=== PATIENT | female | born 1970 | race African-American/Black ===

== ENCOUNTER 2020-02-22 17:03 | Emergency (ER) | payer SELFPAY ==
[2020-02-22 17:08] VITALS: BP 129/78; PULSE 74; RESP 16; TEMP 36.7; O2SAT 98
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
== END 2020-02-22 17:29 | disposition home or self-care (01) ==
PROVIDERS: Emergency Provider Nurse Practitioner Family
DX: S61.411D Laceration without foreign body of right hand, subsequent encounter (principal); W26.0XXD Contact with knife, subsequent encounter
CPT/HCPCS: 99201; G0463

== ENCOUNTER 2020-11-27 08:44 | Outpatient (CLI) | payer BC, SELFPAY ==
--- NOTE | ~2020-11-27 | MM_ITS ---
EXAMINATION: MM screening [facility] BI w susan HISTORY: Screening TECHNIQUE: Craniocaudal and mediolateral oblique 3-D tomosynthesis images were obtained and synthetic 2-D images were generated. CAD analysis was submitted and interpreted. COMPARISON: Comparison to multiple prior studies sequentially, with oldest reviewed study dated 04/30. BREAST PARENCHYMAL COMPOSITION: There are scattered areas of fibroglandular density. FINDINGS: There is no evidence of suspicious mass, calcification, or architectural distortion to sugg est malignancy in either breast. There has been no suspicious interval change. IMPRESSION: 1. No mammographic evidence of malignancy. 2. Recommend routine screening mammography in one year. BI-RADS Category 1: Negative Reviewed, dictated and finalized at location A.
== END 2020-11-27 08:45 | disposition home or self-care (01) ==
LOC: ANHIMG 08:46
PROVIDERS: PCP Emergency Medicine; Visit Provider Nurse Practitioner
DX: Z12.31 Encounter for screening mammogram for malignant neoplasm of breast (principal)
CPT/HCPCS: 77063; 77067

== ENCOUNTER 2020-11-27 09:12 | Outpatient (CLI) | payer BC, SELFPAY ==
--- NOTE | ~2020-11-27 | CT_ITS ---
EXAMINATION: CT sinus wo con DATE: 11/27/2020 09:37 INDICATION: Chronic sinusitis TECHNIQUE: Computed tomography (CT) of the paranasal sinuses was performed without intravenous contra st. The dose-length product (DLP) was 295.03 mGy-cm. Iterative reconstruction was used. COMPARISON: None FINDINGS: There is normal development and pneumatization of the paranasal sinuses. There is mild muco yoko thickening in the ethmoidal air cells, the right sphenoid sinus, and the right maxillary sinus. T he remaining paranasal sinuses are clear. The bilateral ostiomeatal complexes are occluded. Visualize d soft tissues are unremarkable. There is fibrous union of the posterior C1 arch. IMPRESSION: 1. Mild sinus disease as detailed above. Reviewed, dictated and finalized at location B.
== END 2020-11-27 09:13 | disposition home or self-care (01) ==
PROVIDERS: PCP Emergency Medicine; Visit Provider Emergency Medicine
DX: J32.9 Chronic sinusitis, unspecified (principal)
CPT/HCPCS: 70486

== ENCOUNTER 2020-12-16 09:07 | Outpatient (CLI) | payer BC, SELFPAY ==
--- NOTE | ~2020-12-16 | DEXA_ITS ---
Bone Density Report Name: Cat Rogers Age: 50 Sex: Female Ethnicity: White Date of : 1970 Indication: postmenopausal; height loss; cancer; Referring Provider: ROJAS, YAMINI Study: Bone densitometry was performed. Exam Date: December 16, 2020 Accession number: [id number] Bone Density: Region BMD T-score Z-score Classification AP Spine (L1-L4) 0.928 -1.1 -0.4 Osteopenia Femoral Neck (Left) 0.675 -1.6 -0.9 Osteopenia Total Hip (Left) 0.853 -0.7 -0.3 Normal Total Hip Bilateral Avg 0.850 -0.8 -0.4 Normal Femoral Neck (Right) 0.687 -1.5 -0.8 Osteopenia Total Hip (Right) 0.847 -0.8 -0.4 Normal World Health Organization criteria for BMD impression classify patients as: Normal (T-score at or above -1.0), Osteopenia (T-score between -1.0 and -2.5), or Osteoporosis (T-score at or below -2.5). 10-year Fracture Risk(1): Major Osteoporotic Fracture 1.8% Hip Fracture 0.1% Reported Risk Factors: [place] (Black), Neck BMD=0.675, BMI=35.0 (1) FRAX(R) Version 3.08. Fracture probability calculated for an untreated patient. Fracture probability may be lower if the patient has received treatment. Clinical Information Provided by Patient: Has used the following medications: Vitamin D Has the following medical conditions: Cancer Patient maximum height was 67.5 Menopause Age: 26 Onset of menses at age 14 Number of children 2 Impression: The patient has low bone mass, based on the Left Femoral Neck T-score. The patient has an estimated ten-year risk of hip fracture of 0.1% and an estimated ten-year risk of major fracture of 1.8%, based on the WHO FRAX algorithm. Discussion: BONE DENSITY IS LOW AT ONE OR MORE SKELETAL SITES. This patient's lowest T-score is low at one or more skeletal sites. It meets the World Health Organization's (WHO) criteria for ?low bone mass? (T-score between -1.0 and -2.5). The patient's 10-year risk of fracture as calculated by FRAX is less than the threshold where pharmacological therapy is recommended by the National Osteoporosis Foundation (NOF). However, all treatment decisions require clinical judgment and consideration of individual patient factors, including patient preferences, comorbidities, previous drug use, risk factors not captured in the FRAX model (e.g., frailty, falls, vitamin D deficiency, increased bone turnover, interval significant decline in bone density) and possible under or overestimation of fracture risk by FRAX. The patient should follow a healthful lifestyle (good nutrition with adequate calcium and vitamin D, and appropriate weight-bearing exercise). Follow-Up: Consider repeating this study in 2 to 3 years to reassess this patient's status, or sooner if there is some new clinical indication. Reported by: CHENG on 12/16/2020 9:31:00 AM.
== END 2020-12-16 09:08 | disposition home or self-care (01) ==
LOC: ANHIMG 09:09
PROVIDERS: PCP Emergency Medicine; Visit Provider Nurse Practitioner
DX: Z78.0 Asymptomatic menopausal state (principal); M85.88 Other specified disorders of bone density and structure, other site; M85.852 Other specified disorders of bone density and structure, left thigh; M85.851 Other specified disorders of bone density and structure, right thigh
CPT/HCPCS: 77080

== ENCOUNTER 2021-03-17 20:29 | Emergency (ER) | payer BC, SELFPAY ==
--- NOTE | ~2021-03-17 | XR_ITS ---
EXAMINATION: XR chest 1V portable INDICATION: Weakness and dehydration, COVID positive TECHNIQUE: Portable AP chest at 2114 hours COMPARISON: None available FINDINGS: There are patchy bilateral airspace opacities. No pleural effusion or pneumothorax is ident ified. The cardiomediastinal silhouette is normal. IMPRESSION: 1. Patchy bilateral airspace opacities, consistent with pneumonia. Reviewed, dictated and finalized at location A.
[2021-03-17 20:36] VITALS: BP 138/70; PULSE 112; RESP 20; TEMP 38.8; O2SAT 97
--- NOTE | 2021-03-17 20:38 | ECG_ITS ---
Measurements Intervals [place] Rate: 106 P: 151 [place]: 161 QRS: 197 QRSD: 85 T: 172 QT: 306 QTc: 407 Interpretive Statements SINUS TACHYCARDIA ARM LEADS REVERSED CANNOT RULE OUT SEPTAL INFARCT, AGE INDETERMINATE BORDERLINE T WAVE ABNORMALITY- INFERIOR LEADS ABNORMAL ECG Electronically Signed On 03-18-2021 6:03:43 CDT by Frankie Mcintosh D.O.
[2021-03-17 20:55] LABS: Basophils Percent Auto 0.4 % (0.2-1.2); Hematocrit 38.9 % (37.0-47.0); Hemoglobin 12.8 g/dL (12.0-15.0); Immature Granulocyte Absolute 0.01 K/mm3 (0.00-0.031); Immature Granulocyte Percent A 0.2 % (0-0.5); Lymphocytes Absolute Auto 1.23 K/mm3 (0.9-3.2); Lymphocytes Percent Auto 22.7 % (18.3-44.2); Mean Corpuscular HGB Conc 32.9 g/dl (32-36); Mean Corpuscular Hemoglobin 27.5 pg (26-34); Mean Corpuscular Volume 83.5 fl (80-100); Mean Platelet Volume 9.3 fl (7.4-10.4); Monocytes Absolute Auto 0.4 K/mm3 (0.1-0.6); Monocytes Percent Auto 7.2 % (2.6-8.5); Neutrophils Absolute Auto 3.8 K/mm3 (1.3-6.7); Neutrophils Percent Auto 69.5 % (45.5-73.1); Platelet Count Result 188 k/mm3 (150-375); Red Blood Count 4.66 M/mm3 (4.2-5.4); White Blood Count 5.4 K/mm3 (4.5-10.0)
[2021-03-17 21:07] LABS: Add Urine Microscopic? YES; Appearance Urine Cloudy (Clear); Bilirubin Urine Negative (Negative); Blood Urine Negative (Negative); Color Urine Yellow (Yellow); Glucose Urine UA Negative (Negative); Ketones Urine Negative (Negative); Leukocyte Esterase Ur Negative LEU/UL (Negative); Mucus Urine Rare /lpf; Nitrate Urine Negative (Negative); Protein Urine 1+ mg/dL (Negative); Squamous Epithelial Cell Urine Occasional /hpf (Few)
[2021-03-17 21:08] LABS: Alanine Aminotransferase 21 U/L (4-35); Albumin Level 4.3 g/dL (3.5-5.1); Alkaline Phosphatase 81 U/L (38-126); Anion Gap 7 mmol/L (8-16); Aspartate Amino Transferase 33 U/L (14-36); Bilirubin,Total 0.5 mg/dL (0.2-1.3); Blood Urea Nitrogen 13 mg/dL (7-17); Calcium 8.7 mg/dL (8.4-10.2); Carbon Dioxide 28 mmol/L (22-30); Chloride 99 mmol/L (98-107); Estimated CRCL calculation 81 ml/min; Estimated Glomerular Filt Rate > 60; Glucose 121 mg/dL (65-110); Potassium 3.8 mmol/L (3.4-5.0); Sodium 134 mmol/L (137-145)
[2021-03-17 22:40] VITALS: BP 118/72; PULSE 100; RESP 16; TEMP 38.4; O2SAT 96
--- NOTE | 2021-03-18 | PC.NURSE ---
Pt. requesting IV removed and states she wants to go home. Pt. advised against this and to seek medical advise for worsening symptoms. pt. ambulated out of ed w/ steady gait, NAD skin pink warm and dry.
== END 2021-03-18 05:14 | disposition left against medical advice (07) ==
PROVIDERS: Emergency Provider Emergency Medicine; PCP Emergency Medicine
DX: R53.1 Weakness (principal)
CPT/HCPCS: 36415; 71045; 80053; 81001; 85025; 93005; 99199

== ENCOUNTER 2023-07-15 11:42 | Emergency (ER) | payer BC, SELFPAY ==
[2023-07-15] VITALS (18 sets, daily range): BP systolic 112–124; BP diastolic 72–77; PULSE 73–92; RESP 8–28; TEMP 36.2; O2SAT 95–100
--- NOTE | ~2023-07-15 | US_ITS ---
EXAMINATION: US right upper quadrant DATE: 07/15/2023 16:56 INDICATION: Abdominal pain TECHNIQUE: Multiple grayscale and Doppler ultrasound images of the abdomen were obtained. COMPARISON: CT abdomen dated 10/04/2004 FINDINGS: Visualized body of the pancreas appears normal. The pancreatic head and tail are obscured. Liver has normal contour, with a smooth surface. There is increased parenchymal echogenicity and coarsened echo texture consistent with diffuse hepatic steatosis. The gallbladder is normal in appearance. There is no cholelithiasis. The common bile duct measures 5 mm, which is normal. No intrahepatic biliary duct dilation suspected. Portal venous flow was seen in the hepatopetal, normal direction and has normal Doppler waveform. Sonographic Ibarra sign was reported as negative by the biofuels engineering manager.Visualized prox imal inferior vena cava is normal. IMPRESSION: 1. Diffuse hepatic steatosis. Reviewed, dictated and finalized at location A. HALMIC PATHOLOGIST
--- NOTE | 2023-07-15 15:27 | ECG_ITS ---
Measurements Intervals [place] Rate: 76 P: 34 [place]: 179 QRS: 0 QRSD: 91 T: 6 QT: 358 QTc: 405 Interpretive Statements SINUS RHYTHM SEPTAL MYOCARDIAL INFARCTION , OF INDETERMINATE AGE [40+ ms Q WAVE IN V1/V2] NONSPECIFIC T-WAVE ABNORMALITY ABNORMAL ECG COMPARED TO ECG 03/17/2021 20:42:02 SINUS RHYTHM NOW PRESENT Electronically Signed On 07-16-2023 15:03:49 LNA by Francis Sue M.D.
[2023-07-15 15:53] LABS: Basophils Absolute Auto 0.1 K/mm3 (0.0-0.1); Basophils Percent Auto 0.3 % (0.2-1.2); Eosinophils Absolute Auto 0.1 K/mm3 (0-0.3); Eosinophils Percent Auto 0.7 % (0-4.4); Hematocrit 45.5 % (37.0-47.0); Hemoglobin 14.1 g/dL (12.0-15.0); Immature Granulocyte Absolute 0.04 K/mm3 (0.00-0.031); Immature Granulocyte Percent A 0.3 % (0-0.5); Lymphocytes Absolute Auto 1.76 K/mm3 (0.9-3.2); Lymphocytes Percent Auto 12.1 % (18.3-44.2); Mean Corpuscular Hemoglobin 26.9 pg (26-34); Mean Corpuscular Volume 86.8 fl (80-100); Mean Platelet Volume 9.9 fl (7.4-10.4); Monocytes Absolute Auto 0.5 K/mm3 (0.1-0.6); Monocytes Percent Auto 3.1 % (2.6-8.5); Neutrophils Absolute Auto 12.2 K/mm3 (1.3-6.7); Neutrophils Percent Auto 83.5 % (45.5-73.1); Platelet Count Result 295 k/mm3 (150-375); Red Blood Count 5.24 M/mm3 (4.2-5.4); Red Cell Distribution Width 14.2 % (11.5-14.5); White Blood Count 14.6 K/mm3 (4.5-10.0)
[2023-07-15 15:54] LABS: Appearance Urine Clear (Clear); Bilirubin Urine Negative (Negative); Blood Urine Negative (Negative); Color Urine Yellow (Yellow); Glucose Urine UA Negative (Negative); Ketones Urine Trace mg/dL (Negative); Leukocyte Esterase Ur Negative LEU/UL (Negative); Nitrate Urine Negative (Negative); Protein Urine Negative (Negative); Specific Grav Ur 1.017 (1.001-1.035); Urobilinogen Urine 0.2 mg/dL (<2.0)
[2023-07-15 15:56] LABS: Add Urine Microscopic? NO
[2023-07-15 16:01] LABS: Alanine Aminotransferase 24 U/L (6-35); Albumin Level 4.4 g/dL (3.5-5.1); Alkaline Phosphatase 117 U/L (38-126); Anion Gap 9 mmol/L (8-16); Aspartate Amino Transferase 38 U/L (14-36); Bilirubin,Total 0.6 mg/dL (0.2-1.3); Blood Urea Nitrogen 10 mg/dL (7-17); Calcium 9.2 mg/dL (8.4-10.2); Carbon Dioxide 26 mmol/L (22-30); Chloride 104 mmol/L (98-107); Estimated CRCL calculation 91 ml/min; Estimated Glomerular Filt Rate > 60; Glucose 103 mg/dL (65-110); Lipase 217 U/L (23-300); Prothrombin Time 13.6 Seconds (11.1-14.7); Sodium 139 mmol/L (137-145)
[2023-07-15 16:02] LABS: Partial Thromboplastin Time 31.6 SECONDS (22.3-36.8)
[2023-07-15 16:13] LABS: Troponin I < 0.012 ng/mL (0.000-0.034)
--- NOTE | 2023-07-15 16:14 | ED.ABDPAIN ---
HPI - Abdominal Pain General Chief Complaint: Abdominal Pain Stated Complaint: abd pain Time Seen by Provider: 07/15/23 15:27 History of Present Illness HPI narrative: Patient is a 53-year-old female here with abdominal pain. She states that the abdominal pain began about 10 days ago. She has been on a smoothie cleanse over the last 10 days. She notes that she does not get abdominal pain with eating fruits but with eating vegetables or knots the pain seems to worsen significantly. It is located on the epigastric and right upper quadrant area as an associated with feeling as though she needs to suddenly take the bowel movement. Today she notes that she had 1 of her smoothies with some vegetables and began feeling sudden onset abdominal pain associated with some diaphoresis, sweating and feeling as though she needs to go to the bathroom. She notes that the pain persisted and this was different than previous episodes which prompted her visit to the emergency department today. She is currently asymptomatic. No prior cardiac history. No chest pain with these symptoms. She does note that she has had an upper endoscopy in the past, this was grossly normal. She did say that she had a colonoscopy less than about 1 year ago and they did note that she has had some colonic spasms during the procedure. She has struggled with abdominal spams for quite some time however the persistence and associated symptoms were different today. No blood in stool or vomit, no urinary symptoms. No fever or chills. Related Data Allergies Allergy/AdvReac Type Severity Reaction Status Date / Time sulfamethoxazole Allergy Hives Verified 02/22/20 17:09 [From ] trimethoprim [From ] Allergy Hives Verified 02/22/20 17:09 Review of Systems Review of Systems: All systems reviewed & are unremarkable except as noted in HPI and below Exam Narrative: GENERAL: Well-appearing, well-nourished, and in no acute distress. HEAD: Normocephalic, atraumatic. EYES: PERRLA and EOMI. ENT: Nares clear. Mucous membranes moist. NECK: Supple. CHEST: Clear to auscultation. No respiratory distress. HEART: Regular rate and rhythm. Normal peripheral pulses. ABDOMEN: Soft, nontender, nondistended. No rebound or guarding. Negative sood sign. EXTREMITIES: Normal range of motion. No edema. SKIN: Warm, dry, no rash. NEURO: No focal deficits. Alert and oriented x3. PSYCH: Normal mood and affect. Course Course Emergency Course: Chart review performed. Patient here with intermittent abdominal pain times 10 days worse with eating. Episodes of vomiting today. Triage vitals normal. Patient seen evaluated, nontoxic appearing. Currently asymptomatic. She did receive some Zofran by EMS which helped her nausea. Will do abdominal pain workup in addition to right upper quadrant ultrasound given symptoms seem to recur with eating. Only prior abdominal surgery was a . Lab work and imaging reviewed. White blood cell count of 14.6, suspect this could be somewhat reactive from her vomiting today. CMP unremarkable. Normal LFTs. Troponin negative. UA negative for UTI. RUQ ultrasound negative. Patient re-evaluated, continues to feel well with no symptoms. Will discharge with Levsin and Zofran. Advised follow-up with her building services supervisor. Will additionally give her the information for the on-call building services supervisor. The results of pertinent diagnostic studies and exam findings were discussed. The patient?s provisional diagnosis and plan of care were discussed with the patient and present family. The patient and/or present family expressed understanding of the diagnosis and plan. The nurse was instructed to provide written instructions and appropriate follow-up information. The patient understands their need and responsibility to obtain additional follow-up as instructed. The risks of medications administered and prescribed were discussed with the patient and family pr
== END 2023-07-15 18:05 | disposition home or self-care (01) ==
PROVIDERS: Emergency Provider Student in an Organized Health Care Education/Training Program; PCP Emergency Medicine
DX: R10.84 Generalized abdominal pain (principal); R11.2 Nausea with vomiting, unspecified; K76.0 Fatty (change of) liver, not elsewhere classified
CPT/HCPCS: 36415; 76705; 80053; 81003; 83605; 83690; 84484; 85025; 85610; 85730; 93005; 99284

== ENCOUNTER 2023-07-28 06:49 | Outpatient (CLI) | payer BC, SELFPAY ==
--- NOTE | ~2023-07-28 | NM_ITS ---
EXAMINATION: NM hepatobiliary wo pharm DATE: 07/28/2023 09:28 INDICATION: Generalized abdominal pain. COMPARISON: Ultrasound 07/15/2023 TECHNIQUE: 4.9 mCi Tc-99m mebrofenin (Choletec) was administered intravenously. Scintigraphic images of the abdomen were obtained for one hour. Then, the patient drank 8 oz Ensure, and imaging was cont inued for 60 minutes. FINDINGS: There is normal clearance of radiotracer from the blood pool. There is homogeneous tracer u ptake by the liver. Activity progresses to the bowel and gallbladder. Gallbladder ejection fraction (GBEF) was 56%. Note that with this technique, normal GBEF >= 33%. IMPRESSION: 1. Normal hepatobiliary scintigraphy. Reviewed, dictated and finalized at location A. T CLOSER
== END 2023-07-28 06:50 | disposition home or self-care (01) ==
PROVIDERS: PCP Emergency Medicine; Visit Provider Emergency Medicine
DX: R10.84 Generalized abdominal pain (principal)
CPT/HCPCS: 78226; A9537

== ENCOUNTER 2023-08-07 07:47 | Outpatient (CLI) | payer BC, SELFPAY ==
--- NOTE | ~2023-08-07 | DEXA_ITS ---
Bone Density Report Name: YVON FERRERA Age: 53 Sex: Female Ethnicity: White Date of : 1970 Indication: osteopenia; height loss; cancer; Referring Provider: FLAVIO ROY Study: Bone densitometry was performed. Exam Date: August 07, 2023 Accession number: [id number] Bone Density: Region BMD T-score Z-score Classification AP Spine(L1-L4) 0.934 -1.0 -0.2 Normal Femoral Neck (Left) 0.720 -1.2 -0.3 Osteopenia Total Hip (Left) 0.860 -0.7 -0.2 Normal Femoral Neck (Right) 0.725 -1.1 -0.3 Osteopenia Total Hip (Right) 0.867 -0.6 -0.1 Normal Total Hip Mean 0.863 -0.7 -0.2 Normal World Health Organization criteria for BMD impression classify patients as: Normal (T-score at or above -1.0), Osteopenia (T-score between -1.0 and -2.5), or Osteoporosis (T-score at or below -2.5). 10-year Fracture Risk(1): Major Osteoporotic Fracture 4.3% Hip Fracture 0.2% Reported Risk Factors: [place] (), Neck BMD=0.720, BMI=39.1 (1) FRAX(R) Version 3.08. Fracture probability calculated for an untreated patient. Fracture probability may be lower if the patient has received treatment. Previous Exams: Region Exam Age BMD T-score BMD Change BMD Change Date g/cm2 vs Baseline vs Previous AP Spine (L1-L4) 08/07/2023 53 0.934 -1.0 0.006 (0.7%) 0.006 (0.7%) 12/16/2020 50 0.928 -1.1 Total Hip(Left) 08/07/2023 53 0.860 -0.7 0.006 (0.8%) 0.006 (0.8%) 12/16/2020 50 0.853 -0.7 Total Hip(Right) 08/07/2023 53 0.867 -0.6 0.020 (2.4%) 0.020 (2.4%) 12/16/2020 50 0.847 -0.8 *Denotes significance at 95% confidence level, LSC for AP Spine = 0.022 g/cm2, LSC for Total Hip = 0.027 g/cm2 Clinical Information Provided by Patient: Has used the following medications: Vitamin D Has the following medical conditions: Cancer Patient maximum height was 67.5 Menopause Age: 26 No regular weight bearing exercise Onset of menses at age 15 Number of children 2 Impression: The patient has low bone mass, based on the Left Femoral Neck T-score. The patient has an estimated ten-year risk of hip fracture of 0.2% and an estimated ten-year risk of major fracture of 4.3%, based on the WHO FRAX algorithm. No significant bone loss was observed. Discussion: BONE DENSITY IS LOW AT ONE OR MORE SKELETAL SITES. This patient's lowest T-score is low at one or more skeletal sites. It meets the World Health Organization's (WHO) criteria for ?low b
--- NOTE | ~2023-08-07 | MM_ITS ---
EXAMINATION: MM screening [facility] BI w susan HISTORY: Screening mammogram TECHNIQUE: Craniocaudal and mediolateral oblique 3-D tomosynthesis images were obtained and synthetic 2-D images were generated. CAD analysis was submitted and interpreted. COMPARISON: 11/27/2020 bilateral screening mammogram 12/16/2016 diagnostic bilateral mammogram and limited right breast ultrasound examination 05/11/2015 bilateral screening mammogram BREAST PARENCHYMAL COMPOSITION: The breasts are almost entirely fatty. FINDINGS: There is no evidence of suspicious mass, calcification, or architectural distortion to sugg est malignancy in either breast. There has been no suspicious interval change. IMPRESSION: 1. No mammographic evidence of malignancy. 2. Recommend routine screening mammography in one year. BI-RADS Category 1: Negative Reviewed, dictated and finalized at location A. E PLANT
== END 2023-08-07 07:48 | disposition home or self-care (01) ==
LOC: ANHIMG 07:50
PROVIDERS: PCP Emergency Medicine; Visit Provider Emergency Medicine
DX: Z12.31 Encounter for screening mammogram for malignant neoplasm of breast (principal); Z78.0 Asymptomatic menopausal state; M85.852 Other specified disorders of bone density and structure, left thigh; M85.851 Other specified disorders of bone density and structure, right thigh
CPT/HCPCS: 77063; 77067; 77080

== ENCOUNTER 2023-09-03 00:39 | Day surgery (SDC) | payer BC, SELFPAY ==
[2023-08-23 15:04] VITALS: BMI 37.3
--- NOTE | 2023-09-01 14:52 | SUR.PREOP ---
Patient called regarding upcoming procedure. Reviewed preop instructions, appointment times, and procedure prep.
[2023-09-03 08:05] VITALS: BP 138/78; PULSE 54; RESP 14; TEMP 36.2; O2SAT 98
[2023-09-03] MEDS: LACTATED RINGERS 1,000 ML 150 ML IV CONT (08:33)
--- NOTE | 2023-09-03 08:58 | P.PNAN_ITS ---
Anes - Initial Pre Proc Eval Procedure: Operation Date: 09/03/23 09:30 Proposed Procedures p Esophagogastroduodenoscopy - Luis Vela MD Date/Time: 09/03/23 08:58 Surgeon: Luis Vela MD Pre Op Diagnosis: esophagitis, abdominal pain Patient Data Age: 53 Gender: F Height: 1.68 m Weight: 107.1 kg Last Vital Signs Temp 97.2 F L 09/03/23 08:05 Pulse 54 L 09/03/23 08:05 Resp 14 09/03/23 08:05 BP 138/78 09/03/23 08:05 Pulse Ox 98 09/03/23 08:05 O2 Del Method Room Air 09/03/23 08:05 Allergies Allergy/AdvReac Type Severity Reaction Status Date / Time sulfamethoxazole Allergy Hives Verified 09/03/23 08:03 [From ] trimethoprim [From ] Allergy Hives Verified 09/03/23 08:03 Home Medications Medication Instructions Recorded Confirmed Type cholecalciferol (vitamin D3) 125 125 mcg PO DAILY 08/23/23 08/23/23 History mcg (5,000 unit) tablet (Vitamin D3) evening primrose oil 500 mg capsule 500 mg PO TID 08/23/23 08/23/23 History magnesium glycinate 100 mg tablet 100 mg PO DAILY 08/23/23 08/23/23 History omeprazole 20 mg capsule,delayed 20 mg PO DAILY 08/23/23 08/23/23 History release Patient hx anesthesia problems: none Family hx anesthesia problems: none Results Review: All pre-operative results and documents have been reviewed as part of the pre- operative evaluation. [facility] Social History Social History Substance use: former Substance use type: marijuana Other substance usage details: In teens Living arrangements: with family Spiritual care concerns: No Anes - Eval Final PreProcedure Day of Procedure 09/03/23 08:58 Patient weight: obese Heart: regular rate and rhythm Lungs: clear to auscultation Airway: Mallampati scale class II Neurological: alert and oriented Last oral intake: >/= 8 hours ASA classification: III Emergent: no Anesthetic plan: proceed Anesthesia type and monitoring: general GIVS and standard monitoring Results Review: All pre-operative results and documents have been reviewed as part of the pre- operative evaluation. Informed Consent: The patient's anesthetic plan and its attendant risks and benefits were discussed with the patient/family/POA. Questions were solicited and answers provided to the satisfaction of the patient/family/POA.
--- NOTE | 2023-09-03 09:14 | PM.HPGS ---
History of Present Illness History of Present Illness Consent: Risks, benefits, and alternatives have been discussed and questions answered. Patient agrees to proceed with procedure. Chief complaint: esophagitis, abdominal pain Narrative: Cat Rogers is a 53 year old female with epigastric pain for which went to ER, ultrasound showed fatty liver, hida scan normal, she is doing ok now. Had egd but years ago Review of Systems Review of Systems: All systems reviewed & are unremarkable except as noted in HPI and below PMFSH Past Medical History Medical History (Updated 09/03/23 @ 09:16 by Luis Vela MD) Epigastric pain Social History Social History Substance use: former Substance use type: marijuana Other substance usage details: In teens Living arrangements: with family Spiritual care concerns: No Meds Home Medications and Allergies Home Medications Medication Instructions Recorded Confirmed Type cholecalciferol (vitamin D3) 125 125 mcg PO DAILY 08/23/23 08/23/23 History mcg (5,000 unit) tablet (Vitamin D3) evening primrose oil 500 mg capsule 500 mg PO TID 08/23/23 08/23/23 History magnesium glycinate 100 mg tablet 100 mg PO DAILY 08/23/23 08/23/23 History omeprazole 20 mg capsule,delayed 20 mg PO DAILY 08/23/23 08/23/23 History release Allergies Allergy/AdvReac Type Severity Reaction Status Date / Time sulfamethoxazole Allergy Hives Verified 09/03/23 08:03 [From ] trimethoprim [From ] Allergy Hives Verified 09/03/23 08:03 Vital Signs Vital Signs - 24 hr 09/03/23 08:05 Temperature 97.2 F L Pulse Rate 54 L Respiratory Rate 14 Blood Pressure 138/78 Pulse Oximetry 98 Oxygen Delivery Room Air Exam Const: General: comfortable and no acute distress HENMT: Face/Nose/Sinus: Normal nares present Eyes: General: appearance normal, both eyes and all related structures Neck: Neck: no JVD Resp: Auscultation: clear to auscultation bilaterally Cardio: Rate: regular rate Rhythm: regular rhythm GI: Inspection: non-distended GI Palp: Yes Soft to palpation Skin: General skin exam: normal color Neuro: General: gait normal Speech: normal speech Extrem: General: normal to inspection Psych: Mental Status: mental status grossly normal Assessment and Plan Assessment and plan (1) Epigastric pain: Code(s): R10.13 - Epigastric pain Status: Acute Assessment and Plan: egd with bx
[2023-09-03 09:25] VITALS: BP 114/76; PULSE 75; RESP 20; O2SAT 97
[2023-09-03 09:35] VITALS: BP 122/83; PULSE 67; RESP 22; O2SAT 97
[2023-09-03 09:45] VITALS: BP 132/85; PULSE 61; RESP 17; O2SAT 97
== END 2023-09-03 09:47 | disposition home or self-care (01) ==
PROVIDERS: PCP Emergency Medicine; Visit Provider Internal Medicine Gastroenterology
PROC: 0DJ08ZZ Inspection of Upper Intestinal Tract, Via Natural or Artificial Opening Endoscopic (ICD-10-PCS; CPT 43235; principal; 2023-09-03 09:30)
DX: K29.50 Unspecified chronic gastritis without bleeding (principal); K44.9 Diaphragmatic hernia without obstruction or gangrene; E66.9 Obesity, unspecified; Z68.38 Body mass index [BMI] 38.0-38.9, adult
CPT/HCPCS: 43239; 88305; J2704; J7120

== ENCOUNTER 2025-02-19 16:03 | Emergency (ER) | payer BC, SELFPAY ==
[2025-02-19 16:06] VITALS: BP 148/93; PULSE 74; RESP 16; TEMP 36.7; O2SAT 97
--- NOTE | 2025-02-19 16:51 | ED.GENADULT ---
HPI - General Adult General Chief complaint: Dizziness Stated complaint: Dizziness Time Seen by Provider: 02/19/25 16:51 Source: patient, RN notes reviewed and old records reviewed Mode of arrival: ambulatory Limitations: no limitations History of Present Illness HPI narrative: 55-year-old female presents to the [facility] with approximately 2 months of intermittent dizziness. States that she has seen her primary care provider twice 1 at the end of December, once early January. Denies any runny nose, sore throat, fevers. States that she was prescribed some Flonase which does not make the dizziness any better or worse. States that the dizziness only used to happen at work. Has progressed to when she drives. Does have an MRI scheduled for March 12. Patient became concerned when she was trying to drive, looking sideways and became very dizzy. Denies any headaches. Denies chest pain or shortness of breath when this is occurring. Onset (ago): month(s) (Over 2 months) Related Data Home Medications ?Medication ?Instructions ?Recorded ?Confirmed ?Last Taken ?Type cholecalciferol (vitamin D3) 125 125 mcg PO DAILY 08/23/23 02/19/25 Unknown History mcg (5,000 unit) tablet (Vitamin D3) evening primrose oil 500 mg capsule 500 mg PO TID 08/23/23 02/19/25 Unknown History magnesium glycinate 100 mg (as 100 mg PO DAILY 08/23/23 02/19/25 Unknown History glycinate) tablet cyclobenzaprine 10 mg tablet 10 mg PO Q12H PRN muscle spasm 02/19/25 02/19/25 Unknown History fluticasone propionate 50 1 spray intranasal DAILY 02/19/25 02/19/25 Unknown History mcg/actuation nasal spray,suspension Allergies Allergy/AdvReac Type Severity Reaction Status Date / Time sulfamethoxazole (From Allergy Hives Verified 02/19/25 16:09 Septra) trimethoprim (From Septra) Allergy Hives Verified 02/19/25 16:09 valacyclovir (From Valtrex) Allergy Migraine Verified 02/19/25 16:09 Review of Systems Review of Systems: All systems reviewed & are unremarkable except as noted in HPI and below Constitutional: Constitutional: Reports no additional constitutional complaints ENT: Reports system reviewed and no additional complaints, except as documented Cardiovascular: Cardiovascular: Reports no additional cardiovascular complaints, Denies chest pain and Denies dyspnea Respiratory: Respiratory: Reports no additional respiratory complaints, Denies chest congestion, Denies cough and Denies dyspnea Musculoskeletal: Musculoskeletal: Reports no additional musculoskeletal complaints Integumentary/Breasts: Skin/Breast: Reports system reviewed and no additional complaints, except as docu Neurologic: Reports as per HPI and Reports dizziness PMFSH Past Medical History Medical History Epigastric pain Social History Social History Substance use: former Substance use type: marijuana Other substance usage details: In teens Living arrangements: with family Spiritual care concerns: No Comments At the time of my signature, I reviewed and agree with the nursing past medical, surgical, social, and family history. There is no relevant family history pertinent to the patient complaint. Exam Const: General: cooperative, healthy appearing, comfortable, no acute distress, well developed, alert and well nourished Nutritional Appearance: well nourished Orientation/consciousness: patient oriented x3 Limitations: no limitations HENMT: Head: normal to inspection Ears: hearing grossly normal bilaterally, external ears normal, TM's normal bilaterally, EAC's normal, mastoids normal and no periauricular adenopathy Mouth: Yes Normal oral and palatal mucosa present, Yes lip normal, Yes tongue normal and Yes moist mucous membranes Throat: posterior oropharynx normal, uvula midline and no uvular edema Eyes: General: appearance normal, both eyes and all related structures Alignment and Position: alignment normal Neck: Neck: normal visual inspection, full ROM, no lymphadenopathy and no meningeal signs Chest: Chest palpation & inspection: normal inspection of the chest Resp: Effort & Inspection: normal respiratory effort and able to speak in complete sentences Auscultation: clear to auscultation bilaterally, no crackles, no rales, no rhonchi and no wheezes Cardio: Rate: regular rate Skin: General skin exam: normal color and no rashes or lesions noted Neuro: General: patient oriented x3, gait normal, moves all extremities and no meningeal signs Cranial nerves: Yes facial sensation intact/muscles of mastication intact, Yes Equal, round and reactive pupils present, Yes Bilaterally intact EOM present, Yes Nystagmus not present, Yes Normal facial strength present, Yes facial symmetry, Yes Midline tongue present and Yes Ability to bilaterally elevate shoulders present Cognition (Neuro): normal cognition Speech: normal speech Gait exam (Neuro): Normal gait present Extrem: General: normal to inspection, full ROM, capillary refill normal and normal gait Psych: Appearance: grossly normal and well kempt Mental Status: mental status grossly normal Speech and movement: Normal speech and movement present and Clear speech present Affect: normal affect Attitude: cooperative Course Course Level of Care: Express Care Visit Vital Signs Vital signs: Vital Signs Temperature 98.1 F 02/19/25 16:06 Pulse Rate 74 02/19/25 16:06 Respiratory Rate 16 02/19/25 16:06 Blood Pressure 148/93 H 02/19/25 16:06 Pulse Oximetry 97 02/19/25 16:06 Oxygen Delivery Room Air 02/19/25 16:06 Temperature 98.1 F 02/19/25 16:06 Pulse Rate 74 02/19/25 16:06 Respiratory Rate 16 02/19/25 16:06 Blood Pressure 148/93 H 02/19/25 16:06 Pulse Oximetry 97 02/19/25 16:06 Oxygen Delivery Room Air 02/19/25 16:06 Reviewed Medical Decision Making MDM Narrative Medical decision making narrative: Patient sitting in exam room. Patient is tearful and appears mildly anxious. Tired of having dizzy episodes. Has seen her primary care provider twice. Discussed transfer to the ER which she is declining for financial reasons. Discussed attempting meclizine Patient already has an appointment for an MRI Discharge instructions reviewed with patient, as well as provided in writing per nursing staff. The instructions also include specific and strict return/GO TO THE ER as well as f/u information. All questions have been answered, and the patient deny any further questions with discharge and discharge plan. Some parts of this dictation were generated by voice recognition software and may contain typographical and/or grammatical inaccuracies. Differential Diagnosis Differential Diagnosis: TIA, stroke, tumor, abnormal neurologic finding, headache, vertigo Medical Records Medical records reviewed: Yes I reviewed the external patient's medical records. Vital Signs Vital Signs: Vital Signs Temperature 98.1 F 02/19/25 16:06 Pulse Rate 74 02/19/25 16:06 Respiratory Rate 16 02/19/25 16:06 Blood Pressure 148/93 H 02/19/25 16:06 Pulse Oximetry 97 02/19/25 16:06 Oxygen Delivery Room Air 02/19/25 16:06 Temperature 98.1 F 02/19/25 16:06 Pulse Rate 74 02/19/25 16:06 Respiratory Rate 16 02/19/25 16:06 Blood Pressure 148/93 H 02/19/25 16:06 Pulse Oximetry 97 02/19/25 16:06 Oxygen Delivery Room Air 02/19/25 16:06 Reviewed Lab Data Lab results reviewed: Yes I reviewed the patient's lab results. Labs: Reviewed Critical Care Time Critical Care Time Critical Care Time: No Discharge Plan Discharge Clinical Impression: Dizziness Patient Disposition: Home Condition: Stable Instructions: Dizziness (ED) Additional Instructions: Follow-up with your primary care provider tomorrow. Try taking the meclizine to see if that helps with your symptoms For worsening symptoms please go directly to the emergency room. Patient Language: [place] Island[place] Prescriptions: New meclizine 25 mg tablet 25 mg PO BID PRN (Reason: dizziness) Qty: 10 0RF No Action cyclobenzaprine 10 mg tablet 10 mg PO Q12H PRN (Reason: muscle spasm) fluticasone propionate 50 mcg/actuation spray,suspension 1 spray INTRANASAL DAILY evening primrose oil [Evening [place]] 500 mg Capsule 500 mg PO TID Rx Instructions: give with meal/snack magnesium glycinate 100 mg Tablet 100 mg PO DAILY cholecalciferol (vitamin D3) [Vitamin D3] 125 mcg (5,000 unit) Tablet 125 mcg PO DAILY Follow-up/Referrals: Genaro Islas MD [Primary Care Provider, Family Practice] - 2 Days Clinical Impression: Dizziness Stand Alone Forms: Work/School Release IP Time of Disposition: 17:05
== END 2025-02-19 17:10 | disposition home or self-care (01) ==
PROVIDERS: Emergency Provider Nurse Practitioner; PCP Emergency Medicine
DX: R42 Dizziness and giddiness (principal)
CPT/HCPCS: 99213; G0463

== ENCOUNTER 2025-02-20 08:19 | Emergency (ER) | payer BC, SELFPAY ==
--- NOTE | ~2025-02-20 | CT_ITS ---
EXAMINATION: CTA BRAIN/CAROTID DATE: 02/20/2025 10:22 INDICATION: Persistent positional vertigo TECHNIQUE: Computed tomographic angiography (CTA) of the head and neck was performed with 100 mL Omnipaque-350 intravenous contrast. Multiplanar reconstructions and maximum intensity projection 3D-reconstructions of the carotid arteries and of the intracranial arteries were created by the technologist on a separate workstation. Precontrast CT of the head was also obtained. Automated exposure control and iterative reconstruction technique were employed.The dose-length product was 1538.73 mGy-cm. COMPARISON: None. FINDINGS: Head: No acute intracranial hemorrhage, acute infarction or abnormal extra axial fluid collection. There is mild scattered white matter hypoattenuation consistent with chronic small vessel ischemic disease. Ventricles are normal and symmetric. No mass/mass effect. No abnormally enhancing lesions on the post contrast imaging. The orbits, paranasal sinuses and mastoid air cells are normal. Intracranial arteries Vertebral arteries are codominant. There is no hemodynamically significant stenosis in the vertebral, basilar and internal carotid arteries. Both A1 and P1 segments are patent. There are also patent bilateral posterior communicating arteries. There are no aneurysms identified. Cerebral arterial arborization appears symmetric. Carotid arteries: The aortic arch and the great vessels arising from the arch are normal in caliber with no dissection or hemodynamically significant stenosis. There is no evident atherosclerotic plaque with 0% stenosis of the right and left carotid bulbs relative to normal distal artery lumen diameter (NASCET criteria). Mild atelectasis in the visualized upper lungs likely related to expiratory phase of imaging. A couple likely benign hypodense right thyroid nodule aorta measuring 7 mm.. Cervical soft tissues are otherwise unremarkable. Mild cervical and upper thoracic spondylosis. IMPRESSION: 1. No evidence atherosclerotic plaque with 0% stenosis of the right and left carotid bulbs relative to normal distal artery lumen diameter (NASCET criteria). 2. Unremarkable cerebral CT angiogram with no hemodynamic significant stenosis, from stenosis or aneurysm. 3. No acute intracranial process. Reviewed, dictated and finalized at location A. IMPRESSION: 1. No evidence atherosclerotic plaque with 0% stenosis of the right and left ca rotid bulbs relative to normal distal artery lumen diameter (NASCET criteria). 2. Unremarkable cerebral CT angiogram with no hemodynamic significant stenosis, from stenosis or aneurysm. 3. No acute intracranial process.
--- NOTE | ~2025-02-20 | XR_ITS ---
EXAMINATION: XR chest 2V DATE: 02/20/2025 08:54 INDICATION: Dizziness TECHNIQUE: PA and lateral views of the chest were obtained. COMPARISON: Chest radiograph dated 03/17/2021 FINDINGS: The lungs are clear with no focal airspace opacities, pulmonary edema, pleural effusion or pneumothorax. The cardiomediastinal silhouette is normal. Mild upper thoracic levocurvature with mild spondylosis. IMPRESSION: 1. No acute cardiopulmonary disease. Reviewed, dictated and finalized at location A.
--- NOTE | 2025-02-20 08:22 | ECG_ITS ---
Test Date: 2025-02-20 08:28:28 Measurements Intervals [place] Rate: 78 P: 33 NE: 175 QRS: -12 QRSD: 96 T: 17 QT: 372 QTc: 426 Interpretive Statements SINUS RHYTHM CONSIDER PREVIOUS SEPTAL MYOCARDIAL INFARCTION BORDERLINE ECG No previous ECG available for comparison Electronically Signed On 02-20-2025 12:33:13 CDT by Ralph Paez M.D.
[2025-02-20 08:25] VITALS: BP 147/82; PULSE 87; RESP 16; TEMP 37; O2SAT 97
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
--- OUTSIDE RECORDS SUMMARY | 2025-02-20 08:37 | XMS_ITS | Clinical Summary ---
Author Organization [facility] Address [address] [place] [id number] Care Team Providers Care Package Line Relief Operator Name Role Phone Unavailable Primary Care Provider Unavailabl e Social History Tobacco Use Types Packs/Day Years Used Date Smoking Tobacco: Never Assessed Comments Unknown Sex and Gender Information Value Date Recorded Sex Assigned at Not on file Legal Sex Female 2:14 PM CDT Gender Identity Not on file Sexual Orientation Not on file Plan of Treatment Upcoming Encounters Date Type Department Care Team (Late st Contact Info) Description 03/12/2025 8:15 AM CDT Appointment [facility] [address] [place] [address] Genaro Islas MD [address] [place] [address] Health Maintenance Due Date Last Done Comments Cervical Cancer Screening Pa p Smear (Age 30 to 64) Every 3 Years 1972 Colorectal Cancer Screening Colonoscopy (10 Years) 1972 Annual Physical 02/09/1975 Hepatitis C 02/09/1990 DTaP, Tdap and Td Vaccines ( 1 - Tdap) 02/09/1991 Hepatitis B Vaccines (1 of 3 - 19+ 3-dose series) 02/09/1991 Cervical Cancer Screening Pa p with HPV Testing (Age 30 to 64) Every 5 Years 02/09/2002 Cervical Cancer Screening with HPV 02/09/2002 Mammogram Screening 2012 Pneumococcal Vaccine: 50+ Ye ars (1 of 1 - PCV) 02/09/2022 Zoster Vaccines (1 of 2) 02/09/2022 COVID-19 Vaccine ( - 2023-2 5 season) 2025 Meningococcal B Vaccine Aged Out No l onger eligible based on patient's age to complete this topic Meningococcal Vaccine Aged Out No torsten francisca eligible based on patient's age to complete this topic RSV Immunizations Under 20 Months Aged Out No longer eligible based on patient's age to complete this topic Insurance [facility]
--- OUTSIDE RECORDS SUMMARY | 2025-02-20 08:37 | XMS_ITS | Clinical Summary ---
Author Organization [facility] Address [address] [place] [address] Phone Care Team Providers Care Orthotic Aide Name Role Phone Genaro Islas Primary Care Provider [phone] Allergies Active Allergy Reactions Criticality Noted Date Comments Sulfamethoxazole-Trimethoprim Hives 2021 Medications citalopram (CeleXA) 40 MG Tablet Take 40 mg by mouth daily. Active amphetamine-dext roamphetamine (ADDERALL) 20 MG Tablet Take 20 mg by mouth 2 times daily. Active Lansoprazole (PREVACID PO) Take by mouth. Active Family History Medical History Relation Name Comments Other-comment Father pancreatic can cer Relation Name Status Comments Father Mother Social History Tobacco Use Types Packs/Day Years Used Date Smoking Tobacco: Never Cigarettes Smokeless Tobacco: Never Alcohol Use Standard Drinks/Week Comments Yes 0 (1 standard drink = 0.6 oz pur e alcohol) social Comments Unknown Sex and Gender Information Value Date Recorded Sex Assigned at Not on file Legal Sex Female 9:16 AM CDT Gender Identity Not on file Sexual Orientation Not on file Last Filed Vital Signs Vital Sign Reading Time Taken Comments Blood Pressure 140/92 08/08/2021 2:47 PM [employer] Pulse 99 08/08/2021 2:47 PM [employer] Temperature 36.2 C (97.2 F) 08/08/2021 2:47 PM [employer] Respiratory Rate 18 08/08/2021 2:47 PM [employer] Oxygen Saturation 97% 08/08/2021 2:47 PM [employer] Inhaled Oxygen Concentration - - Weight 110.4 kg (243 lb 6.4 oz) 08/08/2021 2:47 PM [employer] Height 169.2 cm (5' 6.6) 08/08/2021 2:47 PM [employer] Body Mass Index 38.58 08/08/2021 2:47 PM [employer] Plan of Treatment Health Maintenance Due Date Last Done Comments Hepatitis C Virus (HCV) Screening 1970 TdaP Immunization 1970 Hepatitis B Immunization (1 of 3 - 19+ 3-dose series) 02/09/1991 Pap Smear 02/09/1993 Cervical Cancer Screening (CCS) 02/09/2002 HPV/Cotest 02/09/2002 Cologuard 02/09/2017 Colonoscopy 02/09/2017 Colorectal Cancer Screening 02/09/2017 Immunochemical Fecal Occult Blood 02/09/2017 Pneumococcal Immunization (5 0+ years) (1 of 1 - PCV) 02/09/2022 Zoster Immunization (1 of 2) 02/09/2022 Influenza Immunization (#1) 2025 SARS-COV-2 Immunization ( - season) 2025 03/24/2021, 03/03/2021 Respiratory Syncytial Virus (RSV) Immunization (Adult) (1 - 1-dose 75+ series) 02/09/2047 Human Papillomavirus (HPV) Immunization Aged Out No longer eligible b ased on patient's age to complete this topic Meningococcal Immunization (ACWY) Aged Out No longer eligible b ased on patient's age to complete this topic Rotavirus Immunization Aged Out No lo nger eligible based on patient's age to complete this topic Insurance [facility] Care Teams Orthotic Aide Relationship Specialty Start Date End Date Genaro Islas [address] [place] [address] PCP - General Family Medicine 12/18/20
[2025-02-20 08:40] LABS: Hematocrit 44.0 % (37.0-47.0); Hemoglobin 13.8 g/dL (12.0-15.0); Immature Granulocyte Percent A 0.3 % (0-0.5); Lymphocytes Absolute Auto 2.30 K/mm3 (0.9-3.2); Mean Corpuscular HGB Conc 31.4 g/dl (32-36); Mean Corpuscular Hemoglobin 27.0 pg (26-34); Mean Corpuscular Volume 85.9 fl (80-100); Nucleated Red Blood Cells Absolute Auto 0.000 K/mm3 (0.0-0.012); Nucleated Red Blood Cells Perc 0.0 % (0.0-0.2); Platelet Count Result 351 k/mm3 (150-375); Red Blood Count 5.12 M/mm3 (4.2-5.4); White Blood Count 6.7 K/mm3 (4.5-10.0)
[2025-02-20 08:51] LABS: Alanine Aminotransferase 22 U/L (6-35); Albumin Level 4.2 g/dL (3.5-5.1); Alkaline Phosphatase 113 U/L (38-126); Anion Gap 8 mmol/L (4-12); Aspartate Amino Transferase 29 U/L (14-36); Bilirubin,Total 0.6 mg/dL (0.2-1.3); Blood Urea Nitrogen 13 mg/dL (7-17); Calcium 9.2 mg/dL (8.4-10.2); Carbon Dioxide 25 mmol/L (22-30); Chloride 104 mmol/L (98-107); Estimated CRCL calculation 78 ml/min; Estimated Glomerular Filt Rate > 60; Glucose 104 mg/dL (65-110); Potassium 3.9 mmol/L (3.4-5.0); Sodium 137 mmol/L (137-145); Total Protein 7.6 g/dL (6.3-8.2)
--- OUTSIDE RECORDS SUMMARY | 2025-02-20 09:27 | XMS_ITS | Clinical Summary ---
Author Organization [facility] Address [address] [place] [address] Care Team Providers Care Employment Interviewer Name Role Phone Genaro Islas MD Primary Care Provider + [phone] Allergies Active Allergy Reactions Criticality Noted Date [...] (04/14/2022): Added automatically from request for surgery [id number] Surgical History Surgery Date Site/Laterality Comments COLONOSCOPY [...] on file Legal Sex Female 4:31 AM SOCIAL MEDIA CONTENT MANAGER Gender Identity Not on file Sexual Orientation Not on file Obstetrics History Last Filed Vital Signs Vital Sign Reading Time Taken Comments Blood Pressure 122/65 05/11/2022 9:55 AM SOCIAL MEDIA CONTENT MANAGER Pulse 67 05/11/2022 9:55 AM SOCIAL MEDIA CONTENT MANAGER Temperature 36 C (96.8 F) 05/11/2022 9:35 AM SOCIAL MEDIA CONTENT MANAGER Respiratory Rate 15 05/11/2022 9:55 AM SOCIAL MEDIA CONTENT MANAGER Oxygen Saturation 98% 05/11/2022 9:55 AM SOCIAL MEDIA CONTENT MANAGER Inhaled Oxygen Concentration - - Weight 104.8 kg (231 lb) 05/11/2022 8:59 AM SOCIAL MEDIA CONTENT MANAGER Height 168.9 cm (5' 6.5) 05/11/2022 8:59 AM SOCIAL MEDIA CONTENT MANAGER Body Mass Index 36.73 05/11/2022 8:59 AM SOCIAL MEDIA CONTENT MANAGER Plan of Treatment Health Maintenance Due Date [...] Associated Diagnosis Comments COLONOSCOPY 05/11/2022 8:50 AM SOCIAL MEDIA CONTENT MANAGER SCREENING MAMMOGRAM BILATERAL W ROBBI Schedule Routine, Read Routine (OP Routine) 03/10/2019 1:57 PM CDT Encounter for screening mammogram for malignant neoplasm of breast from Last 3 Months or Most Recently Relevant to Health Maintenance Results * COLONOSCOPY (05/11/2022 8:50 AM SOCIAL MEDIA CONTENT MANAGER) Anatomical Region Laterality Modality Other Narrative Procedure Note Breanne Bennett MD - 05/11/2022 8:50 AM [facility] Patient Name: Cat Rogers Procedure Date: 05/11/2022 8:50 AM Date of : 1970 Admit Type: Outpatient Age: 52 Gender: Female Attending MD: Breanne Bennett M.D. Room: [facility]COPY [facility] 9 Note Status: Finalized Procedure: [...] The scope was passed under direct vision.The [id number] endoscope was introduced through the anus and advanced to the cecum, identified by appendiceal orifice and ileocecal valve. The colonoscopy was somewhat difficult due torestricted mobility of the colon. The patient tolerated the procedure well. The quality of the bowelpreparation was evaluated using the BBPS (Brinkley BowelPreparation Scale) with scores of: Right Colon [...] On: 05/11/2022 8:50 AM Recognized by the [employer] for promoting quality [...] to a prior imaging study performed at [facility] on 02/02/2018. There are scattered areas of [...] to a prior imaging study performed at [facility] on 02/02/2018. There are scattered areas of [...] Rogers Antione Payer ID:[id number] (NA) Group ID:[id number] Type:Clinicient Address: [address] FEDERAL Member Subscriber Plan / Payer (Ef fective 2021-Present) Name:AlligatorCat maier Relation to Subscriber:Self Name:Cat Rogers Payer ID:[id number] (NAIC) Group ID:[id number] Type:BC ALLIANCE Address: [facility] [id number] [place] [id number] Advance Directives For more information, please contact: [phone] * Full Code (Latest Code Status on File) Date Activated Date Inactivated Comments 05/11/2022 8:45 AM 05/11/2022 2:30 PM Care Teams Employment Interviewer Relationship Specialty Start Date End Date Genaro Islas MD [address] [place] [address] PCP - General 03/20/21
--- OUTSIDE RECORDS SUMMARY | 2025-02-20 09:27 | XMS_ITS | Clinical Summary ---
Author Organization [facility] Address [address] [place] [address] Phone Care Team Providers Care Commercial Hvac Service Technician Name Role Phone Genaro Islas Primary Care Provider [phone] Allergies Active Allergy Reactions Criticality Noted Date [...] Comments Blood Pressure 140/92 08/08/2021 2:47 PM [employer] Pulse 99 08/08/2021 2:47 PM [employer] Temperature 36.2 C (97.2 F) 08/08/2021 2:47 PM [employer] Respiratory Rate 18 08/08/2021 2:47 PM [employer] Oxygen Saturation 97% 08/08/2021 2:47 PM [employer] Inhaled Oxygen Concentration - - Weight 110.4 kg (243 lb 6.4 oz) 08/08/2021 2:47 PM [employer] Height 169.2 cm (5' 6.6) 08/08/2021 2:47 PM [employer] Body Mass Index 38.58 08/08/2021 2:47 PM [employer] Plan of Treatment Health Maintenance Due Date [...] patient's age to complete this topic Insurance [facility] Care Teams Commercial Hvac Service Technician Relationship Specialty Start Date End Date Genaro Islas [address] [place] [address] PCP - General Family Medicine 12/18/20
--- OUTSIDE RECORDS SUMMARY | 2025-02-20 09:27 | XMS_ITS | Clinical Summary ---
Author Organization [facility] Address [address] [place] [address] Care Team Providers Care Jd Edwards Name Role Phone Unavailable Primary Care Provider [...] Info) Description 03/12/2025 8:15 AM CDT Appointment [facility] [address] [place] [address] Genaro Islas MD [address] [place] [address] Health Maintenance Due Date Last [...] patient's age to complete this topic Insurance [facility]
[2025-02-20 10:08] VITALS: BP 130/82; BP 130/85; PULSE 70; PULSE 80
[2025-02-20 10:09] VITALS: BP 135/85; PULSE 89
[2025-02-20] MEDS: MECLIZINE HCL 25 MG TABLET PO (11:09)
[2025-02-20 11:21] LABS: BEDSIDEPREGUCG Negative (Negative)
--- NOTE | 2025-02-20 11:27 | ED.GENADULT ---
HPI - General Adult General Chief complaint: Dizziness Stated complaint: dizziness Time Seen by Provider: 02/20/25 08:38 History of Present Illness HPI narrative: This is a 55-year-old female presenting ED with chief complaint of vertigo. Patient has been having intermittent lightheadedness when she walks over the last 2 months. However over the last week she has developed vertigo while turning her head while driving. The vertigo has occurred once or twice over the last week. It is triggered by moving her head and has occurred while she was driving like when she checks for her blind spot. The symptoms quickly resolve. She does not have any double vision dysarthria dysphagia or loss of coordination. The patient has been seen her primary care physician due to the intermittent lightheadedness but she says vertigo is a completely different sensation. Patient has not had any nausea vomiting diarrhea. No recent illness. She has seen her primary care physician who is treating her with sinus decongestants. Related Data Home Medications ?Medication ?Instructions ?Recorded ?Confirmed ?Last Taken ?Type cholecalciferol (vitamin D3) 125 125 mcg PO DAILY 08/23/23 02/19/25 Unknown History mcg (5,000 unit) tablet (Vitamin D3) evening primrose oil 500 mg capsule 500 mg PO TID 08/23/23 02/19/25 Unknown History magnesium glycinate 100 mg (as 100 mg PO DAILY 08/23/23 02/19/25 Unknown History glycinate) tablet cyclobenzaprine 10 mg tablet 10 mg PO Q12H PRN muscle spasm 02/19/25 02/19/25 Unknown History fluticasone propionate 50 1 spray intranasal DAILY 02/19/25 02/19/25 Unknown History mcg/actuation nasal spray,suspension Allergies Allergy/AdvReac Type Severity Reaction Status Date / Time sulfamethoxazole (From Allergy Hives Verified 02/20/25 08:35 Septra) trimethoprim (From Septra) Allergy Hives Verified 02/20/25 08:35 valacyclovir (From Valtrex) Allergy Migraine Verified 02/20/25 08:35 [facility] Past Medical History Medical History Epigastric pain Social History Social History Substance use: former Substance use type: marijuana Other substance usage details: In teens Living arrangements: with family Spiritual care concerns: No Exam Narrative: APPEARANCE: No apparent distress. Head: atraumatic. Tympanic membranes are normal bilaterally EYES: EOMI, NOSE: Atraumatic NECK: Trachea midline RESPIRATORY: No increased rate of breathing, CTAB CARDIOVASCULAR: RRR, ABDOMINAL: Non-distended MUSCULOSKELETAl: No obvious deformities NEURO: Alert. Cranial nerves 2-12 grossly intact. Sensation light touch, motor function cerebellar function intact for 4 extremities. Gait exam was normal. SKIN:: Warm, dry. Normal color PSYCHIATRIC: Normal affect Course Vital Signs Vital signs: Vital Signs Temperature 98.6 F 02/20/25 08:25 Pulse Rate 87 02/20/25 08:25 Respiratory Rate 16 02/20/25 08:25 Blood Pressure 147/82 H 02/20/25 08:25 Pulse Oximetry 97 02/20/25 08:25 Oxygen Delivery Room Air 02/20/25 08:25 Temperature 98.6 F 02/20/25 08:25 Pulse Rate 89 02/20/25 10:09 Respiratory Rate 16 02/20/25 08:25 Blood Pressure 135/85 02/20/25 10:09 Pulse Oximetry 97 02/20/25 08:25 Oxygen Delivery Room Air 02/20/25 08:25 Medical Decision Making MDM Narrative Medical decision making narrative: -Course: 55-year-old female presenting with episodic, positional vertigo. No symptoms in between episodes. No other signs of a central cause of her vertigo. Mother patient says she has been having lightheadedness for 2 months the vertigo symptoms are new and her likely a different pathophysiology. Neurologic exam is normal. CTA obtained which was negative for dissection or intracranial hemorrhage. Patient was treated with meclizine. She was able to ambulate around the emergency department a steady gait. Presentation most consistent with BPPV. She will be discharged follow-up with primary care physician. -DDX includes but is not limited to: BPPV, acute vestibular neuritis, posterior circulation stroke Vital Signs Vital Signs: Vital Signs Temperature 98.6 F 02/20/25 08:25 Pulse Rate 87 02/20/25 08:25 Respiratory Rate 16 02/20/25 08:25 Blood Pressure 147/82 H 02/20/25 08:25 Pulse Oximetry 97 02/20/25 08:25 Oxygen Delivery Room Air 02/20/25 08:25 Temperature 98.6 F 02/20/25 08:25 Pulse Rate 89 02/20/25 10:09 Respiratory Rate 16 02/20/25 08:25 Blood Pressure 135/85 02/20/25 10:09 Pulse Oximetry 97 02/20/25 08:25 Oxygen Delivery Room Air 02/20/25 08:25 Lab Data 02/20/25 08:32 02/20/25 08:32 Labs: Lab Results 02/20/25 02/20/25 02/20/25 Range/Units 08:32 11:17 11:20 WBC 6.7 (4.5-10.0) K/mm3 RBC 5.12 (4.2-5.4) M/mm3 Hgb 13.8 (12.0-15.0) g/dL Hct 44.0 (37.0-47.0) % MCV 85.9 (80-100) fl MCH 27.0 (26-34) pg MCHC 31.4 L (32-36) g/dl RDW 14.2 (11.5-14.5) % Plt Count 351 (150-375) k/mm3 MPV 8.8 (7.4-10.4) fl Immature Gran % (Auto) 0.3 (0-0.5) % Neut % (Auto) 56.9 (45.5-73.1) % Lymph % (Auto) 34.5 (18.3-44.2) % [place] % (Auto) 6.4 (2.6-8.5) % Eos % (Auto) 1.5 (0-4.4) % Baso % (Auto) 0.4 (0.2-1.2) % Lymph # (Auto) 2.30 (0.9-3.2) K/mm3 [place] # (Auto) 0.4 (0.1-0.6) K/mm3 Eos # (Auto) 0.1 (0-0.3) K/mm3 Baso # (Auto) 0.0 (0.0-0.1) K/mm3 Abs Immat Gran (auto) 0.02 (0.00-0.031) K/mm3 Absolute Neuts (auto) 3.8 (1.3-6.7) K/mm3 Absolute Nucleated RBC 0.000 (0.0-0.012) K/mm3 Nucleated RBC % 0.0 (0.0-0.2) % Sodium 137 (137-145) mmol/L Potassium 3.9 (3.4-5.0) mmol/L Chloride 104 (98-107) mmol/L Carbon Dioxide 25 (22-30) mmol/L Anion Gap 8 (4-12) mmol/L BUN 13 (7-17) mg/dL Creatinine 0.94 (0.7-1.0) mg/dL Estim Creat Clear Calc 78 ml/min Estimated GFR > 60 (59 - ) Glucose 104 (65-110) mg/dL Calcium 9.2 (8.4-10.2) mg/dL Total Bilirubin 0.6 (0.2-1.3) mg/dL AST 29 (14-36) U/L ALT 22 (6-35) U/L Alkaline Phosphatase 113 (38-126) U/L Total Protein 7.6 (6.3-8.2) g/dL Albumin 4.2 (3.5-5.1) g/dL Urine Color Pending Urine Appearance Pending Urine pH Pending Ur Specific [place] Pending Urine Protein Pending Urine Glucose (UA) Pending Urine Ketones Pending Ur Blood (Man) Pending Urine Nitrate Pending Urine Bilirubin Pending Urine Urobilinogen Pending Leukocyte Esterase Rfl Pending POC Urine HCG, Qual Negative (Negative) Discharge Plan Discharge Clinical Impression: Benign paroxysmal positional vertigo Patient Disposition: Home Condition: Stable Instructions: Antibiotic Form, Benign Paroxysmal Positional Vertigo (ED) Additional Instructions: You were seen in the emergency department for vertigo. Please use meclizine for your symptoms. Please follow-up with your primary care physician for further management. If you develop double vision, slurred speech, difficulty speaking or inability to ambulate please return emergency department immediately for re-evaluation. Patient Language: Uzbek Prescriptions: No Action cyclobenzaprine 10 mg tablet 10 mg PO Q12H PRN (Reason: muscle spasm) fluticasone propionate 50 mcg/actuation spray,suspension 1 spray INTRANASAL DAILY meclizine 25 mg tablet 25 mg PO BID PRN (Reason: dizziness) Qty: 10 0RF evening primrose oil [Evening [place]] 500 mg Capsule 500 mg PO TID Rx Instructions: give with meal/snack magnesium glycinate 100 mg Tablet 100 mg PO DAILY cholecalciferol (vitamin D3) [Vitamin D3] 125 mcg (5,000 unit) Tablet 125 mcg PO DAILY Follow-up/Referrals: Genaro Islas MD [Primary Care Provider, Family Practice] - 1 Week Referral Note: Vertigo
[2025-02-20 11:28] LABS: Add Urine Microscopic? YES; Appearance Urine Clear (Clear); Glucose Urine UA Negative (Negative); Leukocyte Esterase Ur 1+ LEU/UL (Negative); Nitrate Urine Negative (Negative); Non Pathogenic Casts 0-2; Specific Grav Ur > 1.045 (1.001-1.035)
[2025-02-20 11:59] VITALS: PULSE 89; RESP 16; O2SAT 98
== END 2025-02-20 12:03 | disposition home or self-care (01) ==
PROVIDERS: Emergency Provider Emergency Medicine; PCP Emergency Medicine
DX: H81.10 Benign paroxysmal vertigo, unspecified ear (principal); R94.31 Abnormal electrocardiogram [ECG] [EKG]
CPT/HCPCS: 36415; 70496; 70498; 71046; 80053; 81001; 81025; 85025; 87086; 93005; 99284; A9270; Q9967

== ENCOUNTER 2025-04-02 02:13 | Day surgery (SDC) | payer BC, SELFPAY ==
--- NOTE | 2025-03-22 10:22 | SUR.PREOP ---
[facility] has started construction of its new state of the art ER which will open Spring 2026. With this, we anticipate parking may be a challenge for some our surgical patients and families. Parking spaces are limited but are available for all Surgical, obstetrics, and ER patients sharing this lot. If you arrive and find you are having a hard time finding a parking space, please note that we understand the challenges, please drive around the hospital and park near Hospital Entrance 1. When you enter this entrance, you can ask a volunteer to direct or take you back to the surgical waiting area to check in. We appreciate everyone?s understanding of these expected challenges while we build for your future. Report to the Outpatient Waiting Room, entrance under the green pavilion located off [address], at time _630am__ on date _04/02/25___. Planned Procedure Time: __830am___.? Time changes happen often and if your time is changed the preop area will call you the afternoon before. - You and your visitor will be asked to self-screen and do not enter if you have any COVID symptoms. Please call surgeon if you need to reschedule. - A mask is optional within the hospital at this time. Patients may have clear liquids (water, carbonated beverages, clear teas, apple juice) until 3 hours prior to surgery with a maximum of 20 ounces. - No food from midnight until time of surgery and no smoking, or chewing tobacco (or any form of nicotine). No chewing gum, candy or mints. Take only the following medications with a SIP of water on the morning of surgery: __cyclobenzaprine if needed____ DO NOT STOP ANY OF YOUR OTHER PRESCRIPTION MEDICATIONS PRIOR TO SURGERY EXCEPT THE FOLLOWING Hold all vitamins and supplements for 3 days per anesthesiologist. Medications to discontinue per physician ____n/a__ Date to take last dose of vitamins__03/29/25___ Please no make-up, nail yemeni, hairspray, perfume, deodorant, or body powder the day of surgery.? No jewelry (including any body piercings) or valuables the day of surgery, leave them at home.? Please take a shower or bath the night before, or the morning of, surgery with an antibacterial soap.? Wear comfortable, loose fitting clothing.? - Jewelry must be removed prior to entering the operating room.? Rings and piercings that are not removed may be cut off. - The hospital will not accept responsibility for valuables.? - Please leave all valuables, including medications, at home the day of surgery. If you are going home after surgery, a licensed truck driver supervisor must drive you home.? - NO public transportation without another adult if you receive anesthesia. - We recommend that an adult stay with you for 24 hours following discharge. - We also recommend that you do not drive, make important decision, drink alcoholic beverages, or take any drugs that were not prescribed by your health care provider for at least 24 hours after your discharge time. Follow any additional instructions given to you from your surgeon. Telephone instructions given to ___Cat____and asked if any additional questions and then verbalized understanding. Patient advised to call surgeon office or pre surgery nurse liaison [phone] if any additional questions.
[2025-03-22 10:28] VITALS: BMI 38.7
--- OUTSIDE RECORDS SUMMARY | 2025-04-02 02:16 | XMS_ITS | Data Portability ---
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 Plan of Treatment Reminders Order Date Submit Date Provider Last Modified By Organization Details Last Modified Time Details Appointments SURG Hysterosc opy 2024 08:30A Farooq WILLIS MD Not available Not available Not available SURG POST OP 2024 03:00P Farooq WILLIS MD Not available Not available Not available Lab pap, IG + HR HPV 2024 025 [facility] (Lab), [address], [place], [address], 01/30/2025 10:06:25 hormone panel, serum or plasma 2024 025 [facility] (Lab), [address] [place], [address], 01/30/2025 10:06:24 TSH, serum or plasma 2024 025 [facility] (Lab), [address] [place], [address], 01/30/2025 10:06:23 CBC w/ auto diff 2024 025 [facility] (Lab), [address] [place], [address], 01/30/2025 10:06:22 CMP, serum or plasma 2024 025 [facility] (Lab), [address], [place], [address], 01/30/2025 10:06:23 culture, urine 2024 025 [facility] (Lab), [address], [place], [address], 01/30/2025 10:06:25 urinalysi s, dipstick 2024 025 [email or web address], [address], [place], [address], 01/25/2025 16:55:01 Referral None recorded. Procedures None recorded. Surgeries dilation and curettage with hysterosc opy (SURG) 2024 025 [email or web address] [facility], [address], [place], [address], 02/26/2025 09:44:20 Imaging US, pelvis 2024 025 [address], [address], [place], [address], 02/06/2025 19:42:30 US, transvagi nal 2024 [address], [address], [place], [address], 02/06/2025 19:42:30 MAMMO, screening , digital, bilateral 2024 025 [facility], [address] [place] [address], [address], 03/06/2025 14:48:44 Medication Orders None recorded. Patient TargetsNo targets recorded. Patient InstructionsNo instructions recorded. Reason for Referral None Reported. Results Created Date Observation Date Name Description Value Unit Range Abnormal Flag Note LastModifiedBy Organization Detail LastModifiedTime 01/26/2001/25/2025 CBC W/DIF F WBC 11.2 10'3/ uL 3.5-10 .5 high Not Available [facility] (Lab) [address], [place], [address], 01/30/2025 10:06:22 01/26/20 25 01/25/2025 CBC W/DIF F RBC 4.86 10'6/ uL (based on docume nted legal sex) 3.80-5 .20 Not Available [facility] (Lab) [address], [place], [address], 01/30/2025 10:06:22 01/26/20 25 01/25/2025 CBC W/DIF F HGB 13.0 g/dL (based on docume nted legal sex) 11.6-1 5.4 Not Available [facility] (Lab) [address], [place], [address], 01/30/2025 10:06:22 01/26/20 25 01/25/2025 CBC W/DIF F HCT 41.5 % (based on docume nted legal sex) 34.0-4 5.0 Not Available [facility] (Lab) [address], [place], [address], 01/30/2025 10:06:22 01/26/20 25 01/25/2025 CBC W/DIF F MCV 85.4 fL 80.0-9 9.0 Not Available [facility] (Lab) [address], [place], [address], 01/30/2025 10:06:22 01/26/20 25 01/25/2025 CBC W/DIF F MCH 26.7 pg 27.0-3 4.0 low Not Available [facility] (Lab) [address], [place], [address], 01/30/2025 10:06:22 01/26/20 25 01/25/2025 CBC W/DIF F MCHC 31.3 g/dL 32.0-3 5.5 low Not Available [facility] (Lab) [address] [facility], [place], [address], 01/30/2025 10:06:22 01/26/20 25 01/25/2025 CBC W/DIF F RDW 14.7 % 11.0-1 5.0 Not Available [facility] (Lab) [address] [facility], [place], [address], 01/30/2025 10:06:22 01/26/20 25 01/25/2025 CBC W/DIF F plt 292 10'3/ uL 150-40 0 Not Available [facility] (Lab) [address] [facility], [place], [address], 01/30/2025 10:06:22 01/26/20 25 01/25/2025 CBC W/DIF F MPV 10.2 fL 8.8-12 .1 Not Available [facility] (Lab) [address] [facility], [place], [address], 01/30/2025 10:06:22 01/26/20 25 01/25/2025 CBC W/DIF F NRBC's 0.0 % 0.0 Not Available [facility] (Lab) [address] [facility], [place], [address], 01/30/2025 10:06:22 01/26/20 25 01/25/2025 CBC W/DIF F absolute NRBCs 0.0 10'3/ uL no refere nce range establ ished Not Available [facility] (Lab) [address] [facility], [place], [address], 01/30/2025 10:06:22 01/26/20 25 01/25/2025 CBC W/DIF F neutrophils 64.9 % 34.0-7 3.0 Not Available [facility] (Lab) [address] [facility], [place], [address], 01/30/2025 10:06:22 01/26/20 25 01/25/2025 CBC W/DIF F lymphocytes 26.5 % 15.0-5 0.0 Not Available [facility] (Lab) [address] [facility], [place], [address], 01/30/2025 10:06:22 01/26/20 25 01/25/2025 CBC W/DIF F monocytes 6.8 % 1.0-15 .0 Not Available [facility] (Lab) [address] [facility], [place], [address], 01/30/2025 10:06:22 01/26/20 25 01/25/2025 CBC W/DIF F eosinophils 1.0 % 0.0-8. 0 Not Available [facility] (Lab) [address] [facility], [place], [address], 01/30/2025 10:06:22 01/26/20 25 01/25/2025 CBC W/DIF F basophils 0.4 % 0.0-2. 0 Not Available [facility] (Lab) [address] [facility], [place], [address], 01/30/2025 10:06:22 01/26/20 25 01/25/2025 CBC W/DIF F immature granulocytes 0.4 % no define d refere nce range Immat ure Granu locyt es (IG) repre sents autom ated enume ratio n of Metam yeloc ytes, Myelo cytes and Promy elocy geno when IG is < 5%. Blast s are not inclu ded in IG and repor vince separ ately if prese nt. Not Available [facility] (Lab) [address] [facility], [place], [address], 01/30/2025 10:06:22 01/26/20 25 01/25/2025 CBC W/DIF F absolute neutrophils 7.3 10'3/ uL 1.5-8. 0 Not Available [facility] (Lab) [address], [place], [address], 01/30/2025 10:06:22 01/26/20 25 01/25/2025 CBC W/DIF F absolute lymphocytes 3.0 10'3/ uL 1.0-4. 0 Not Available [facility] (Lab) [address] [facility], [place], [address], 01/30/2025 10:06:22 01/26/20 25 01/25/2025 CBC W/DIF F absolute monocytes 0.8 10'3/ uL 0.2-1. 0 Not Available [facility] (Lab) [address] [facility], [place], [address], 01/30/2025 10:06:22 01/26/20 25 01/25/2025 CBC W/DIF F absolute eosinophils 0.1 10'3/ uL 0.0-0. 6 Not Available [facility] (Lab) [address] [facility], [place], [address], 01/30/2025 10:06:22 01/26/20 25 01/25/2025 CBC W/DIF F absolute basophils 0.0 10'3/ uL 0.0-0. 3 Not Available [facility] (Lab) [address] [facility], [place], [address], 01/30/2025 10:06:22 01/26/20 25 01/25/2025 CBC W/DIF F absolute immature granulocytes 0.0 10'3/ uL 0.00-0 .10 Refer ence range s for nonbi nary/ inter sex or unspe cifie d gende r patie nts have not been estab lishe d. Pleas e refer to the follo wing table for range s estab lishe d for cisge nder patie nts and evalu ate in the clini elvia chayito xt of the indiv idual patie nt: https ://mahin darden book. nm.or g/gen derx Not Available [facility] (Lab) [address] [facility], [place], [address], 01/30/2025 10:06:22 01/26/20 25 01/25/2025 CMP(C OMPRE HENSI VE METAB OLIC PANEL ) sodium 140 mmol/ L 133-14 6 Not Available [facility] (Lab) [address] [facility], [place], [address], 01/30/2025 10:06:23 01/26/20 25 01/25/2025 CMP(C OMPRE HENSI VE METAB OLIC PANEL ) potassium 3.9 mmol/ L 3.5-5. 1 Not Available [facility] (Lab) [address] [facility], [place], [address], 01/30/2025 10:06:23 01/26/20 25 01/25/2025 CMP(C OMPRE HENSI VE METAB OLIC PANEL ) chloride 104 mmol/ L 98-107 Not Available [facility] (Lab) [address] [facility], [place], [address], 01/30/2025 10:06:23 01/26/20 25 01/25/2025 CMP(C OMPRE HENSI VE METAB OLIC PANEL ) carbon dioxide 27 mmol/ L 21-31 Not Available [facility] (Lab) [address] [facility], [place], [address], 01/30/2025 10:06:23 01/26/20 25 01/25/2025 CMP(C OMPRE HENSI VE METAB OLIC PANEL ) anion gap 9 mmol/ L 4-13 Not Available [facility] (Lab) [address] [facility], [place], [address], 01/30/2025 10:06:23 01/26/20 25 01/25/2025 CMP(C OMPRE HENSI VE METAB OLIC PANEL ) blood urea nitrogen 21 mg/dL 7-25 Not Available [facility] (Lab) [address] [facility], [place], [address], 01/30/2025 10:06:23 01/26/20 25 01/25/2025 CMP(C OMPRE HENSI VE METAB OLIC PANEL ) creatinine 1.09 mg/dL 0.60-1 .30 Not Available [facility] (Lab) [address], [place], [address], 01/30/2025 10:06:23 01/26/20 25 01/25/2025 CMP(C OMPRE HENSI VE METAB OLIC PANEL ) egfrcr (CKD-epi 2020) 61 mL/mi n/1.7 3_m2 >=60 Not Available [facility] (Lab) [address] [facility], [place], [address], 01/30/2025 10:06:23 01/26/20 25 01/25/2025 CMP(C OMPRE HENSI VE METAB OLIC PANEL ) calcium 8.8 mg/dL 8.3-10 .5 Not Available [facility] (Lab) [address] [facility], [place], [address], 01/30/2025 10:06:23 01/26/20 25 01/25/2025 CMP(C OMPRE HENSI VE METAB OLIC PANEL ) glucose 88 mg/dL 70-100 Not Available [facility] (Lab) [address], [place], [address], 01/30/2025 10:06:23 01/26/20 25 01/25/2025 CMP(C OMPRE HENSI VE METAB OLIC PANEL ) protein, total 6.7 g/dL 6.4-8. 3 Not Available [facility] (Lab) [address] [facility], [place], [address], 01/30/2025 10:06:23 01/26/20 25 01/25/2025 CMP(C OMPRE HENSI VE METAB OLIC PANEL ) albumin 3.9 g/dL 3.5-5. 0 Not Available [facility] (Lab) [address] [facility], [place], [address], 01/30/2025 10:06:23 01/26/20 25 01/25/2025 CMP(C OMPRE HENSI VE METAB OLIC PANEL ) ALT 13 units /L 9-43 Not Available [facility] (Lab) [address] [facility], [place], [address], 01/30/2025 10:06:23 01/26/20 25 01/25/2025 CMP(C OMPRE HENSI VE METAB OLIC PANEL ) alkaline phosphatase 134 units /L 34-104 high Not Available [facility] (Lab) [address] [place], [address], 01/30/2025 10:06:23 01/26/20 25 01/25/2025 CMP(C OMPRE HENSI VE METAB OLIC PANEL ) AST 15 units /L 13-39 Not Available [facility] (Lab) [address] [facility], [place], [address], 01/30/2025 10:06:23 01/26/20 25 01/25/2025 CMP(C OMPRE HENSI VE METAB OLIC PANEL ) bilirubin, total 0.3 mg/dL 0.2-1. 2 Not Available [facility] (Lab) [address] [facility], [place], [address], 01/30/2025 10:06:23 01/26/20 25 01/25/2025 TSH, REFLE X FREE T4 TSH 1.39 uIU/m L 0.30-5 .33 Not Available [facility] (Lab) [address] [place], [address], 01/30/2025 10:06:23 01/26/20 25 01/25/2025 FSH, LH, ESTRA DIOL estradiol <5.0 pg/mL This assay was perfo rmed using [employer] ratio n reage nts and test kits. Value s obtai elvie with other assay metho ds or kits canno t be used inter don eably . Femal e Estra diol Range s: Folli cular phase 12.4- 233 pg/mL Ovula tion phase 41.0- 398 pg/mL Lutea l phase 22.3- 341 pg/mL Postm enopa usal <5-13 8 pg/mL Healt hy Pregn ant Women 1st Trime ster 154-3 243 pg/mL 2nd Trime ster 1561- 78348 pg/mL 3rd Trime ster 8525- >3000 0 pg/mL Not Available [facility] (Lab) [address] [facility], [place], [address], 01/30/2025 10:06:24 01/26/20 25 01/25/2025 FSH, LH, ESTRA DIOL FSH 70.7 mIU/m L This assay was perfo rmed using [employer] n reage nts and test kits. Value s obtai elvie with other assay metho ds or kits canno t be used inter don eably . Femal es Folli cular : 3.5-1 2.5 mIU/m L Ovula tion: 4.7-2 1.5 mIU/m L Lutea l: 1.7-7 .7 mIU/m L Postm enopa use: 25.8- 134.8 mIU/m L Not Available [facility] (Lab) [address] [facility], [place], [address], 01/30/2025 10:06:24 01/26/20 25 01/25/2025 FSH, LH, ESTRA DIOL LH 35.4 mIU/m L This assay was perfo rmed using [employer] reage nts and test kits. Value s obtai elvie with other assay metho ds or kits canno t be used inter don eably . Femal es Mid-F ollic ular: 2.4-1 2.6 mIU/m L Mid-C ycle: 14.0- 95.6 mIU/m L Mid-L uteal : 1.0-1 1.4 mIU/m L Postm enopa use: 7.7-5 8.5 mIU/m L Not Available [facility] (Lab) [address] [place], [address], 01/30/2025 10:06:24 01/26/20 25 01/25/2025 CULTU RE: URINE result report SEE RESULT S BELOW Test: Cultu re: Urine Speci men Sourc e: Urine - Clean Catch Speci men Type: Urine Speci men Date: 2024 1701 Resul t Date: 2024 Resul t Statu s: Final resul t Abnor mal: No Resul ting Lab: [facility] [address] [facility] [address] Tel: CULTU RE ----- ----- ----- --- No growt h in 1 day (dete ction level of 10,00 0 colon ies / ml.) Not Available [facility] (Lab) [address] [facility], [place], [address], 01/30/2025 10:06:25 01/26/20 25 01/25/2025 IMAGE GUIDE D PAP AND HPV REGAR DLESS image guided Pap, HPV regardless of Pap result SEE RESULT S BELOW CASE REPOR T: Cytol ogy Gynec ologi elvia Repor t Case: [id number] Autho kishan Provi ene: Dermo dy, Nadine , ANP, [employer] Colle cted: 01/25 170 Order ing Locat ion: [place] Patho logy Recei margarita: 01/26 0117 First Scree n: Rahat Laguna CT Speci men: Camilla james Pap - Image d, Cervi x STATE MENT OF ADEQU ACY: Satis facto ry for evalu ation Trans forma tion zone compo nelelia gonzalez nt ----- ----- ----- ----- ----- ----- ----- ----- ----- ----- ----- ----- ----- ----- ----- ----- ----- ---- FINAL DIAGN OSIS: Negat rivera for Intra epith elial Fan talamantes or Miracle gibbs (NIL) . Atrop hy prese nt. Elect carlos a smith d by Rahat Laguna, CT on 025 at 0902 CDT ----- ----- ----- ----- ----- ----- ----- ----- ----- ----- ----- ----- ----- ----- ----- ----- ----- ---- HPV RESUL TS: HPV mRNA E6/E7 : No HPV mRNA Detec vince NOTE: This high risk HPV mRNA assay detec ts fourt een high- risk HPV types (16, 18, 31, 33, 35, 39, 45, 51, 52, 56, 58, 59, 66, 68) witho ut diffe renti ation . COMME NT: This speci men was revie wed by a Cytot echno logis t and/o r Patho logis t (as indic ated in this repor t) after evalu ation using the Thinp rep Imagi ng Syste m. CLINI ELVIA INFOR MATIO N: Menst rual Statu s: LMP (if appli cable ): Clini elvia Histo ry/Pr eviou s Pap: Type of Neopl aliya (if appli cable ): Signi fican t Clini elvia Findi ngs: Other Histo ry: Hormo keerthi (if appli cable ): PAP EDUCA ERICKSON L NOTE: The Pap Test is a scree jacob test with an inher ent false negat rivera rate. Liqui d-bas ed sampl ing may decre ase, but will not elimi nicolasa, false negat rivera resul ts. A negat rivera resul t does not precl ude the prese nce and/o r devel opmen t of disea se, since the prese nce of abnor mal cells in the sampl e depen ds on the locat ion of the lesio n and sampl ing techn ique. Opal nued regul ar scree jacob is the best metho d of cance r preve ntion . If repor vince cytol ogic findi ng do not corre late with physi elvia and/o r histo rical findi ngs, furth er inves tigat ion is recom se d, as clini abida sidhu nted. Not Available [facility] (Lab) [address], [place], [address], 01/30/2025 10:06:25 01/26/20 25 01/25/2025 urina lysis , dipst ick Leukocytes - Not Available [facility] [address], [place], [address], 01/25/2025 16:54:22 01/26/20 25 01/25/2025 urina lysis , dipst ick Nitrite - Not Available [address], [place], [address], 01/25/2025 16:54:22 01/26/20 25 01/25/2025 urina lysis , dipst ick Urobilinogen - Not Available [facility] [address], [place], [address], 01/25/2025 16:54:22 01/26/20 25 01/25/2025 urina lysis , dipst ick Protein trace Not Available [address], [place], [address], 01/25/2025 16:54:22 01/26/20 25 01/25/2025 urina lysis , dipst ick pH 8 Not Available [address], [place], [address], 01/25/2025 16:54:22 01/26/20 25 01/25/2025 urina lysis , dipst ick Blood +++ Not Available [address], [place], [address], 01/25/2025 16:54:22 01/26/20 25 01/25/2025 urina lysis , dipst ick Specific [place] 1.000 Not Available [facility] [address], [place], [address], 01/25/2025 16:54:22 01/26/20 25 01/25/2025 urina lysis , dipst ick Ketone - Not Available [address], [place], [address], 01/25/2025 16:54:22 01/26/20 25 01/25/2025 urina lysis , dipst ick Bilirubin - Not Available [facility] [address], [place], [address], 01/25/2025 16:54:22 01/26/20 25 01/25/2025 urina lysis , dipst ick Glucose - Not Available [address], [place], [address], 01/25/2025 16:54:22 01/26/20 25 01/25/2025 urina lysis , dipst ick Appearance clear Not Available [address], [place], [address], 01/25/2025 16:54:22 01/26/20 25 01/25/2025 urina lysis , dipst ick Color yellow Not Available [address], [place], [address], 01/25/2025 16:54:22 02/06/20 25 02/05/2025 , pelvi s No observ ation record ed. [email or web address] [address], [place], [address], 02/05/2025 18:20:44 02/06/20 25 02/05/2025 US, trans kevin al No observ ation record ed. [email or web address] [address], [place], [address], 02/05/2025 18:20:55 02/06/20 25 02/05/2025 US, pelvi s No observ ation record ed. [email or web address] [address], [place], [address], 02/13/2025 10:17:22 03/06/20 25 03/05/2025 MAMMO , sandrae jacob, digit al, bilat eral No observ ation record ed. [facility] [address], [address], 03/20/2025 04:01:48 Result Notes None recorded. Procedures Surgical History Date Name Laterality Status Provider Name and Address Organization Details Recorded Time 04/30/20 Date of Last Colonoscopy completed NADINE SCOTT NP [address], [place], [address], [facility] 01/25/2025 16:31:43 04/03/19 93 Caesarean Section completed [facility] 01/25/2025 15:58:21 Imaging Results None recorded. Procedure Notes None recorded. Medical Equipment None Reported. Allergies Allergen ID Allergen Name Allergen Category Reaction Reaction Severity Criticality Documentation Date Start Date Code Code System Note Provider Name and Address Organization Details Recorded Time 75799 Valtrex medicatio n headache severe Not available 01/25/2025 30012 0 RxNorm [facility] 15:58:21 76817 sulfameth oxazole / trimethop rim medicatio n hives severe Not available 01/25/2025 50405 RxNorm [facility] 15:58:21 Medications Name Sig Start Date Stop Date Status Note LastModified by Organization Details LastModified Time cyclobenzap rine 10 mg tablet TAKE 1 TABLET BY MOUTH TWICE DAILY NEEDED active Not Available Not Available No t Available prednisone 20 mg tablet TAKE 3 TABLETS BY MOUTH EVERY DAY 01/25 completed Not Available Not Available Not Available meclizine 25 mg tablet TAKE 1 TABLET BY MOUTH TWICE DAILY NEEDED FOR DIZZINESS active Not Available Not Available No t Available fluticasone propionate 50 mcg/actuati on nasal spray,suspe nsion SHAKE LIQUID AND USE 2 SPRAYS IN EACH NOSTRIL EVERY DAY 01/25 completed Not Available Not Available Not Available Vitals Date Recorded Body height Body mass index (BMI) Body weight Systolic And Diastolic Provider Name and Address Organization Details Last Updated DateTime 01/25/2025 168.91 cm 38.8 kg/m2 482343.54 g 129/84 mm[Hg] Annetta Cleveland [facility] 01/25/2025 16:03:18 Date Recorded Body height Body mass index (BMI) Body weight Systolic And Diastolic Provider Name and Address Organization Details Last Updated DateTime 02/23/2025 168.91 cm 38.8 kg/m2 332133.54 g 145/93 mm[Hg] Fiordaliza Hickspineda [facility] 02/23/2025 15:50:14 Social History Question Answer Notes LastModified by Organizat ion Details LastModified Time Do You Have An Advance Directive? No [email or web address] Information n ot available 01/25/2025 How Many Years Have You Consumed Alcohol? 32 [email or web address] Information not available 01/25/2025 Are You Blind Or Do You Have Difficulty Seeing? No [email or web address] Information not available 01/25/2025 What Is Your Level Of Caffeine Consumption? None [email or web address] Information not available 01/25/2025 How Much Tobacco Do You Chew? None Information not available 01/25/2025 In The 14 Days Before Symptom Onset, Have You Had Close Contact With A Laboratory-confirme d COVID-19 While That Case Was Ill? No [email or web address] Information n ot available 01/25/2025 In The 14 Days Before Symptom Onset, Have You Had Close Contact With A Person Who Is Under Investigation For COVID-19 While That Person Was Ill? No Information not available 01/25/2025 Have You Been To An Area Known To Be High Risk For COVID-19? No [email or web address] Information not available 01/25/2025 Are You Deaf Or Do You Have Serious Difficulty Hearing? No Information not available 01/25/2025 What Type Of Diet Are You Following? REGULAR Information n ot available 01/25/2025 What Is The Highest Grade Or Level Of School You Have Completed Or The Highest Degree You Have Received? [id number] [email or web address] Information not available 01/25/2025 Are There Any Guns Present In Your Home? Yes [email or web address] Information not available 01/25/2025 Do You Use Protection During Sex? No Information not available 01/25/2025 Do You Use Your Seat Belt Or Car Seat Routinely? Yes Information not available 01/25/2025 Do You Have Smoke And Carbon Monoxide Detectors In Your Home? Yes [email or web address] Information not available 01/25/2025 How Much Tobacco Do You Smoke? No [email or web address] Information not available 01/25/2025 Do You Use Sunscreen Routinely? No Information not available 01/25/2025 Have You Used IV Drugs? No [email or web address] Information not available 01/25/2025 Do You Have Difficulty Walking Or Climbing Stairs? No [email or web address] Information not available 01/25/2025 Sex: Unknown Functional Status Question Answer Note LastModified by Organizat ion Details LastModified Time Do you use any illicit or recreational drugs? No Information not available 01/25/2025 What is your level of alcohol consumption? Occasional [email or web address] Information not available 01/25/2025 Are you able to walk independently without assistance or assistive devices? YESWOREST [email or web address] Information not available 01/25/2025 Are you able to care for yourself independently? 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 No [email or web address] Information not available 01/25/2025 What is your exercise level? Occasional [email or web address] Information not available 01/25/2025 Mental Status Question Answer Note LastModified by Organization D etails LastModified Time Do you feel stressed (tense, restless, nervous, or anxious, or unable to sleep at night)? [id number] Information not available 01/25/2025 Family History Relationship Description Onset Age of this Age Resolved Age Notes LastModified by Organization Details LastModified Time Mother Hypertensive disorder [email or web address] Not available 2024 15:58:21 Mother Heart disease [email or web address] Not available 2024 15:58:21 Brother Hypertensive disorder [email or web address] Not available 2024 15:58:21 Sister Hypertensive disorder [email or web address] Not available 2024 15:58:21 Father Hypertensive disorder Not available 2024 15:58:21 Medical History Condition Response Allergies (Food, seasonal, environmental ) N Other N Drug/Latex Allergies/Reactions N Blood Transfusion N Breast Cancer N Dermatologic Disorders N Lung Disease N Defects or Inherited Disease N Breast Problem N Gestational Diabetes N Hematologic disorders N Anesthesia Complications N History of STI N Deep Vein Thrombosis N Polycystic ovary syndrome N Anxiety Disorder N Autoimmune disease N Arthritis N Polyps N Infertility N Acid Reflux (GERD) N History of abnormal pap N Cancer Y Varicosities N Stroke N Neurologic/Epilepsy N Endometriosis N High Cholesterol N Fibromyalgia N Headaches N Kidney Disease N Heart Problems N Thyroid Problems N Kidney or Bladder Problems N GI Problems N Eating Disorder N Anemia N Art (IVF or FET) N Psychiatric Illness N Ovarian Cancer N Diabetes N Pulmonary (TB, Asthma) N Hepatitis/Liver Disease N No Past Medical History N Eczema N Urinary Tract Infection N Abuse/Domestic Violence N Asthma N Trauma/Violence N Depression/ depression N Heart Disease N Pre-Eclampsia N Hypertension N Osteoporosis N Thrombophilias N Gynecological History Statement/Question Response Date of Last Mammogram STIs/STDs N Current Control Method None Age at First Child 18 Date of Last Colonoscopy 04/30/2022 Sexually Active? N Date of DEXA bone scan Age of first menstrual cycle Date of Last Pap Smear Sexual Problems? N LMP Unknown Obstetrics History GPAL:G 2 P 2 0 0 2 Type Value Full Term 2 Living 2 Total 2 Past Encounters Encounter ID Performer Location Encounter Start Date Encounter Closed Date Diagnosis/Indication Diagnosis SNOMED-CT Code Diagnosis ICD10 Code Diagnosis IMO Codes Diagnosis Note [id number] NADINE SCOTT NP [facility] [address] [address] 01/25/2025 15:54:12 01/25/2025 17:10:50 Abnormal uterine bleeding [id number] 9100 N93.9 [id number] The patient and I discussed the various causes of abnormal uterine bleeding, including polyps, fibroids, hyperplasi a, atypia, anovulatio n, etc.We reviewed the typical evaluation with labs, pelvic US and possible endometria l biopsy.Pel willa ultrasound ordered - patient to scheduledL abs ordered to check hormones/m enopausal status.Martin l f/u with results Screening mammography [id number] Z12.31 [id number] History of malignant neoplasm of cervix [id number] Z85.41 [id number] History of cervical cancer - pt does not know exact date, but states she was in her 20'sPatien t states she was treated with chemothera py and radiation, but never had hysterecto myWill request medical records for clarificat ionPap smear w/ HPV testing collected today Urinary sy stem finding [id number] R39.9 [id number] Reports difficulty holding urine, c/o weak bladderDi scussed kegel exercises/ pelvic floor therapyUri ne culture sent [id number] Kemal Rosado MD [facility] [address] [address] 02/05/2025 16:48:13 02/05/2025 17:35:05 Abnormal uterine bleeding [id number] 9100 N93.9 [id number] GEORGE WILLIS MD [facility] [address] [address] 02/23/2025 15:42:08 02/23/2025 17:39:24 Abnormal uterine bleeding [id number] 9100 N93.9 [id number] - hx of cervical cancer in 20s treated with chemo/radi ation- no menses since treatment- short episode of light spotting about 6 weeks ago, no inciting events- pelvic US show small amount of endometria l fluid but normal endometria l thickness- discussed fluid and spotting may be due to cervical stenosis, however given hx, sampling should be attempted- discussed in office EMB vs outpatient hysterosco py D&C; due to suspected cervical stenosis, recommend hysterosco py D&C for easier dilation and complete sampling- discussed risks of surgery, including bleeding, infection, and injury to adjacent structures - patient voices understand ing and would like to move forward with surgery Health Concerns Section Related Observation LastModified by Organization Detai ls LastModified Time None Recorded Concern Status LastModified by Organization Details LastModified Time None Recorded Advance Directives Directive N: Payers Insurance Date Sequence Insurance Name Policy Number Policy Gibson Covered Member ID Gibson Member ID Guarantor Name 01/25/2025 1 [place] 113 Cat Rogers [id number] Cat Rogers 03/31/2025 1 [place] 113 Cat Rogers [id number] Cat Rogers Notes Date Note Type Note Provider Name and Address Organization Details Recorded Time 01/25/2025 text/html 54 y/o new patient presents with c/o abnormal bleeding. Patient states that she had cervical cancer in her 20's that was treated with chemotherapy and radiation. Patient states that due to the location of the cancer, she never had her cervix, uterus, or ovaries removed. Patient states that she never had bleeding again after the chemotherapy/radia tion.Patient states that she was diagnosed with cervical cancer at Dr. Butt's office and referred to [facility] oncology. Patient then has followed up with Dr. 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 Patient states that since then all of her pap smears have been normal. Patient states that she noticed light vaginal spotting last week and again this week. Patient also reports bloating.Denies pelvic pain, N/V/D/C/F.Denies urinary frequency, or dysuria, but does have intermittent urgency and bladder leakage. Patient states that she takes supplements at night to help her sleep, including ashwaganda, magnesium, moringa and collagen. NADINE SCOTT NP [address], [place], [address], [facility] 01/25/2025 17:06:27 02/23/2025 text/html ROS as noted in the HPI Patient presents for ultrasound follow up of irregular bleeding. She has a history of cervical cancer in her 20s that was treated with chemo and radiation. She stopped menstruating at that time. about 6-8 weeks ago, she had an episode of vaginal spotting with no inciting event. She denies pain with the bleeding. She had a pelvic US that showed a small amount of endometrial fluid with 2.4mm endometrial lining. US otherwise normal. Normal pap smear at [facility] in 12/2024. She has not had repeat bleeding since that time. GEORGE WILLIS MD [address], [place], [address], [facility] 02/23/2025 17:09:54 OBGyn Episode Ob Episode Information Episode Created Date Number of Fetuses Patient Bloodtype Patient rh Status Prepregnancy Weight lbs Domestic Partner Domestic Partner Phone Father Name Skilled Nursing Professional Status 01/26/20 25 1 CLOSED Fetus Data First Name Last Name Admitted to NICU Weight (g) Sex Living Outcome Pediatric Complications Fetus ID Race Codes Race Delivery Type 3713.55 [id number] F Full Term [id number] Vaginal Delivery Judson Calculation Initial Judson Date Initial Exam Date Initial Exam Provider Initial Ultrasound Date Last Menstrual Period Date Ultra Sound Weeks Gestation 0 Eighteen To Twenty Week Judson Update Ultra Sound Date Fundal Height At Umbil Quickening Date Ultra Sound Latest Weeks Gestation Final Judson Confirmed By Final Judson Confirmed Date Final Judson Date Ultra Sound Latest Days Gestation 0 0 Menstrual History Last Menstrual Date Menses Monthly On Bcp Conception Prior Menses Frequency Hcg Plus Date Menarche Onset Age Delivery Information Delivery Date Delivery Type Labor Anesthesia Weeks Gestation Incision Type Labor Labor Length Hrs Delivered By Post Complications Tubal Sterilization Discharge Date Comments 3 40 Discharge Information Feeding Method Contraceptive Method Maternal HG B and HCT Levels Ob Episode Information Episode Created Date Number of Fetuses Patient Bloodtype Patient rh Status Prepregnancy Weight lbs Domestic Partner Domestic Partner Phone Father Name Skilled Nursing Professional Status 01/26/20 25 1 CLOSED Fetus Data First Name Last Name Admitted to NICU Weight (g) Sex Living Outcome Pediatric Complications Fetus ID Race Codes Race Delivery Type 3883.65 [id number] F Full Term [id number] Primary Judson Calculation Initial Judson Date Initial Exam Date Initial Exam Provider Initial Ultrasound Date Last Menstrual Period Date Ultra Sound Weeks Gestation 0 Eighteen To Twenty Week Judson Update Ultra Sound Date Fundal Height At Umbil Quickening Date Ultra Sound Latest Weeks Gestation Final Judson Confirmed By Final Judson Confirmed Date Final Judson Date Ultra Sound Latest Days Gestation 0 0 Menstrual History Last Menstrual Date Menses Monthly On Bcp Conception Prior Menses Frequency Hcg Plus Date Menarche Onset Age Delivery Information Delivery Date Delivery Type Labor Anesthesia Weeks Gestation Incision Type Labor Labor Length Hrs Delivered By Post Complications Tubal Sterilization Discharge Date Comments 0 39.3 Discharge Information Feeding Method Contraceptive Method Maternal HG B and HCT Levels
--- OUTSIDE RECORDS SUMMARY | 2025-04-02 02:16 | XMS_ITS | Clinical Summary ---
Author Organization [facility] Address [address] [place] [address] Care Team Providers Care Cooker Operator Name Role Phone Flavio Roy MD Primary Care Provider [phone] Encounters Date Type Department Care Team Description 03/12/2025 8:14 AM CDT - 03/12/2025 11:59 PM CDT Hospital Encounter [facility] MRI [address], [place] [id number] Flavio Roy MD Discharge Disposition: Home or Self Care (Routine Discharge) 03/12/2025 Travel from Last 3 Months Social History Tobacco Use Types Packs/Day Years Used Date Smoking Tobacco: Never Assessed Comments Unknown Sex and Gender Information Value Date Recorded Sex Assigned at Not on file Legal Sex Female 2:14 PM CDT Gender Identity Not on file Sexual Orientation Not on file Plan of Treatment Health Maintenance Due Date Last Done Comments Colorectal Cancer Screening Colonoscopy (10 Years) 1972 Annual Physical 02/09/1975 Hepatitis C 02/09/1990 DTaP, Tdap and Td Vaccines ( 1 - Tdap) 02/09/1991 Hepatitis B Vaccines (1 of 3 - 19+ 3-dose series) 02/09/1991 Cervical Cancer Screening Pa p with HPV Testing (Age 30 to 64) Every 5 Years 02/09/2002 Pneumococcal Vaccine: 50+ Years (1 of 1 - PCV) 02/09/2022 Zoster Vaccines (1 of 2) 02/09/2022 COVID-19 Vaccine (3 - 2024-2 6 season) 2025 03/24/2021, 03/03/2021 Influenza Adult (#1) 2025 Mammogram Screening 03/05/2027 03/05/2025, 03/10/2019, 02/02/2018 Cervical Cancer Screening Pa p Smear (Age 30 to 64) Every 3 Years 01/26/2028 01/25/2025 Cervical Cancer Screening wi th HPV 01/26/2028 Hepatitis A Vaccines Aged Out No long er eligible based on patient's age to complete this topic Meningococcal B Vaccine Aged Out No l onger eligible based on patient's age to complete this topic Meningococcal Vaccine Aged Out No torsten francisca eligible based on patient's age to complete this topic RSV Immunizations Under 20 Months Aged Out No longer eligible b ased on patient's age to complete this topic Procedures Procedure Name Priority Date/Time Associated Diagnosis Comments MRI BRAIN WWO CON Routine 03/12/2025 9:2 3 AM CDT Migraine without aura, not intractable, without status migrainosus from Last 3 Months Results * MRI BRAIN WWO CON (03/12/2025 9:23 AM CDT) Anatomical Region Laterality Modality Head Magnetic Resonan ce 03/16/2025 7:03 PM CDT Impressions 03/16/2025 7:05 PM CDT IMPRESSION: 1. No acute intracranial abnormality. 2. Nonspecific [id number] scattered subcortical and periventricular white matter T2 FLAIR hyperintensities which could be sequela of migraine headaches or possibly related to an underlying infectious or inflammatory process, in the appropriate clinical setting. Referred By: FLAVIO ROY Interpreted By: Dequan Gallardo MD, 03/16/2025 7:03 PM Narrative 03/16/2025 7:[address] [address] EXAMINATION: MRI BRAIN WWO CON, 03/16/2025 7:03 PM TECHNIQUE: Multiplanar multisequence magnetic resonance images of the brain were obtained before and after the administration of 20 mL of Dotarem injected through the right antecubital fossa IV, without evidence of adverse reaction. HISTORY: Headaches, dizziness for 3-4 months. COMPARISON: CTA head and neck 02/20/2025 FINDINGS: There is no restricted diffusion to suggest an acute infarction. No hemorrhagic focus of susceptibility. Preserved yates-white matter differentiation otherwise. Scattered subcortical and periventricular white matter T2 FLAIR hyperintensities are nonspecific. No abnormally enhancing intracranial parenchyma or mass. The sella, callosal, pineal and craniovertebral junction regions appear within normal limits. There is no extra-axial collection. The ventricles are normal in size. The basal cisterns appear normal. The proximal intracranial arterial flow voids have a normal appearance. Orbital contents appear normal. Paranasal sinuses and mastoid air cells are well-aerated.. Procedure Note Dequan Gallardo MD - 03/16/[address] [address] EXAMINATION: MRI BRAIN LAURENT [place], 03/16/2025 7:03 PM TECHNIQUE: Multiplanar multisequence magnetic resonance images of thebrain were obtained before and after the administration of 20 mL ofDotarem injected through the right antecubital fossa IV, without evidenceof adverse reaction. HISTORY: Headaches, dizziness for 3-4 months. COMPARISON: CTA head and neck 02/20/2025 FINDINGS: There is no restricted diffusion to suggest an acute infarction.No hemorrhagic focus of susceptibility. Preserved yates-white matterdifferentiation otherwise. Scattered subcortical and periventricularwhite matter T2 FLAIR hyperintensities are nonspecific. No abnormallyenhancing intracranial parenchyma or mass. The sella, callosal, pinealand craniovertebral junction regions appear within normal limits. There is no extra-axial collection. The ventricles are normal in size.The basal cisterns appear normal. The proximal intracranial arterial flowvoids have a normal appearance. Orbital contents appear normal.Paranasal sinuses and mastoid air cells are well-aerated.. IMPRESSION: 1. No acute intracranial abnormality. 2. Nonspecific [id number] scattered subcortical and periventricularwhite matter T2 FLAIR hyperintensities which could be sequela of migraineheadaches or possibly related to an underlying infectious or inflammatoryprocess, in the appropriate clinical setting. Referred By: FLAVIO ROY Interpreted By: Dequan Gallardo MD, 03/16/2025 7:03 PM us Flavio Roy MD MRI Final Result from Last 3 Months Insurance [facility] Care Teams Cooker Operator Relationship Specialty Start Date End Date Flavio Roy MD [address] [place] [address] PCP - General FAMILY PRACTICE 03/05/25
--- OUTSIDE RECORDS SUMMARY | 2025-04-02 02:16 | XMS_ITS | Clinical Summary ---
Author Organization [facility] Address [address] [place] [address] Phone Care Team Providers Care Electrician Bus Name Role Phone Genaro Islas Primary Care Provider [phone] Allergies Active Allergy Reactions Criticality Noted Date [...] Comments Blood Pressure 140/92 08/08/2021 2:47 PM MEDICAL OFFICER Pulse 99 08/08/2021 2:47 PM MEDICAL OFFICER Temperature 36.2 C (97.2 F) 08/08/2021 2:47 PM MEDICAL OFFICER Respiratory Rate 18 08/08/2021 2:47 PM MEDICAL OFFICER Oxygen Saturation 97% 08/08/2021 2:47 PM MEDICAL OFFICER Inhaled Oxygen Concentration - - Weight 110.4 kg (243 lb 6.4 oz) 08/08/2021 2:47 PM MEDICAL OFFICER Height 169.2 cm (5' 6.6) 08/08/2021 2:47 PM MEDICAL OFFICER Body Mass Index 38.58 08/08/2021 2:47 PM MEDICAL OFFICER Plan of Treatment Health Maintenance Due Date [...] patient's age to complete this topic Insurance [facility] Care Teams Electrician Bus Relationship Specialty Start Date End Date Genaro Islas [address] [place] [address] PCP - General Family Medicine 12/18/20
--- OUTSIDE RECORDS SUMMARY | 2025-04-02 02:16 | XMS_ITS | Clinical Summary ---
Author Organization [facility] Address [address] [place] [address] Care Team Providers Care Devops Name Role Phone Genaro Islas MD Primary Care Provider Allergies Active Allergy Reactions Criticality Noted Date [...] (04/14/2022): Added automatically from request for surgery [id number] Encounters Date Type Department Care Team Description 03/05/2025 3:15 PM CDT - 03/05/2025 11:59 PM CDT Hospital Encounter [facility] Breast Imaging [address] [place] [phone] Screening mammogram, encounter for Discharge Disposition: Discharge to home or self care from Last 3 Months Surgical History Surgery Date Site/Laterality Comments COLONOSCOPY [...] on file Legal Sex Female 4:31 AM VEST FRONT PRESSER Gender Identity Not on file Sexual Orientation Not on file Obstetrics History Para Term AB IAB SAB Ectopic Multiple Livin g Live Births 2 2 Date Outcome GA Total Labor Labor/2nd/3rd Weight Sex Type Anes PTL Bekah A1 A5 Name Clin Last Filed Vital Signs Vital Sign Reading Time Taken Comments Blood Pressure 122/65 05/11/2022 9:55 AM VEST FRONT PRESSER Pulse 67 05/11/2022 9:55 AM VEST FRONT PRESSER Temperature 36 C (96.8 F) 05/11/2022 9:35 AM VEST FRONT PRESSER Respiratory Rate 15 05/11/2022 9:55 AM VEST FRONT PRESSER Oxygen Saturation 98% 05/11/2022 9:55 AM VEST FRONT PRESSER Inhaled Oxygen Concentration - - Weight 104.8 kg (231 lb) 05/11/2022 8:59 AM VEST FRONT PRESSER Height 168.9 cm (5' 6.5) 05/11/2022 8:59 AM VEST FRONT PRESSER Body Mass Index 36.73 05/11/2022 8:59 AM VEST FRONT PRESSER Plan of Treatment Health Maintenance Due Date Last Done Comments Cervical Cancer Screening 1972 Depression Screening 1972 Hepatitis C Screening 1972 DTaP/Tdap/Td Vaccine (1 - Tdap) 02/09/1983 Hepatitis B Screening 02/09/1990 Regular Well Visit/Exam 18-64 02/09/1990 Zoster Vaccine (1 of 2) 02/09/2022 Covid-19 Vaccine (3 - 2024-2 6 season) 2025 03/24/2021, 03/03/2021 Influenza Vaccine (#1) 2025 Breast Cancer Screening-Mammogram 03/05/2026 03/05/2025, 03/10/2019, 02/02/2018 Colon Cancer Screening-Colonoscopy 05/11/2032 05/11/2022, 11/08/2015 Pneumococcal vaccine <65 Aged Out No longer eligible based on patient's age to complete this topic Procedures Procedure Name Priority Date/Time Associated Diagnosis Comments SCREENING MAMMOGRAM BILATERAL W ROBBI Schedule Routine, Read Routine (OP Routine) 03/05/2025 3:54 PM CDT Screening mammogram, encounter for COLONOSCOPY 05/11/2022 8:50 AM VEST FRONT PRESSER from Last 3 Months or Most Recently Relevant to Health Maintenance Results * Screening Mammogram Bilateral W Robbi (03/05/2025 3:54 PM CDT) Anatomical Region Laterality Modality Breast Bilateral Mammography Impressions 03/06/2025 12:12 PM CDT Bilateral No evidence of malignancy in either breast. OVERALL BI-RADS FINAL ASSESSMENT: 1 - Negative RECOMMENDATION: Recommend bilateral annual screening mammography. Narrative 03/06/2025 12:12 PM CDT EXAMINATION: Screening Mammogram Bilateral W Robbi: 03/05/2025 COMPARISON: Relevant prior studies available at the time of interpretation were reviewed, including the most recent mammogram on: 03/10/2019. TECHNIQUE: Mammography was performed with 2D and 3D digital breast tomosynthesis (DBT) images. CAD was utilized. BREAST PARENCHYMAL COMPOSITION: The breasts are almost entirely fatty. FINDINGS: Bilateral There is no suspicious mass, calcification, or architectural distortion in either breast. us Self Screening Mammogram IMG MAMMO PROCEDURES Fi nal Result * COLONOSCOPY (05/11/2022 8:50 AM VEST FRONT PRESSER) Anatomical Region Laterality Modality Other Narrative Procedure Note Breanne Bennett MD - 05/11/2022 8:50 AM CST [facility] Patient Name: Cat Rogers Procedure Date: 05/11/2022 8:50 AM Date of : 1970 Admit Type: Outpatient Age: 52 Gender: Female Attending MD: Breanne Bennett M.D. Room: [facility] ENDOSCOPY ROOM 9 Note Status: Finalized [...] The scope was passed under direct vision.The CF [id number] endoscope was introduced through the anus and advanced to the cecum, identified by appendiceal orifice and ileocecal valve. The colonoscopy was somewhat difficult due torestricted mobility of the colon. The patient tolerated the procedure well. The quality of the bowelpreparation was evaluated using the BBPS ([place] BowelPreparation Scale) with scores of: Right Colon [...] On: 05/11/2022 8:50 AM Recognized by the [employer] for promoting quality in endoscopy us Breanne Bennett MD ENDOSCOPY PROCEDURES Final Res ult from Last 3 Months or Most Recently Relevant to Health Maintenance Insurance [facility] [facility] BCBS FEDERAL Advance Directives For more information, please contact: [phone] * Full Code (Latest Code Status on File) Date Activated Date Inactivated Comments 05/11/2022 8:45 AM 05/11/2022 2:30 PM Care Teams Devops Relationship Specialty Start Date End Date Genaro Islas MD [address] [place] [address] PCP - General 03/20/21
[2025-04-02 07:00] VITALS: BP 155/103; PULSE 89; RESP 16; TEMP 36; O2SAT 98
--- NOTE | 2025-04-02 07:23 | PM.IMHP ---
H&P: HPI History of Present Illness Date/Time: 04/02/25 07:23 Chief Complaint: vaginal bleeding Narrative: Patient is a 55 year old female with a history of cervical cancer in her 20s treated with chemo/radiation who presents for hysteroscopy and D&C. She has been amenorrheic since her treatment in her 20s, however began having light spotting without any inciting event. Pelvic US showed endometrial fluid with normal endometrial lining thickness, however given patient's cancer history, recommend sampling of the fluid and endometrium. Patient voices understanding and would like to proceed with hysteroscopy D&C Review of Systems Review of Systems: All systems reviewed & are unremarkable except as noted in HPI and below PMFSH Past Medical History Medical History Epigastric pain Social History Social History Smoking status: Former smoker Smokeless tobacco user: chewing tobacco Additional smoking assessment comments: experimented as a teen with cigarettes Alcohol intake: never Substance use: former Substance use type: marijuana Other substance usage details: In teens Living arrangements: with family Spiritual care concerns: No Meds Home Medications and Allergies Home Medications ?Medication ?Instructions ?Recorded ?Confirmed ?Type cholecalciferol (vitamin D3) 125 125 mcg PO DAILY 08/23/23 03/22/25 History mcg (5,000 unit) tablet (Vitamin D3) evening primrose oil 500 mg capsule 500 mg PO TID 08/23/23 03/22/25 History magnesium glycinate 100 mg (as 200 mg PO DAILY 08/23/23 03/22/25 History glycinate) tablet cyclobenzaprine 10 mg tablet 10 mg PO Q12H PRN muscle spasm 02/19/25 03/22/25 History fluticasone propionate 50 1 spray intranasal DAILY 02/19/25 03/22/25 History mcg/actuation nasal spray,suspension ashwagandha root extract 300 mg 600 mg PO DAILY 03/22/25 03/22/25 History capsule Allergies Allergy/AdvReac Type Severity Reaction Status Date / Time sulfamethoxazole (From Allergy Hives Verified 03/22/25 10:25 Septra) trimethoprim (From Septra) Allergy Hives Verified 03/22/25 10:25 valacyclovir (From Valtrex) Allergy Migraine Verified 03/22/25 10:25 Exam Const: General: comfortable and no acute distress Eyes: General: appearance normal, both eyes and all related structures Resp: Effort & Inspection: normal respiratory effort Cardio: Rate: regular rate Skin: General skin exam: normal color Extrem: General: normal to inspection Psych: Mental Status: mental status grossly normal Assessment and Plan Assessment and plan (1) Abnormal uterine bleeding: Code(s): N93.9 - Abnormal uterine and vaginal bleeding, unspecified Status: Acute Assessment and Plan: - hx of cervical cancer in 20s treated with chemo/radiation - no menses since treatment - short episode of light spotting about 6 weeks ago, no inciting events - pelvic US show small amount of endometrial fluid but normal endometrial thickness - discussed fluid and spotting may be due to cervical stenosis, however given hx, sampling should be attempted - due to suspected cervical stenosis, recommend hysteroscopy D&C for easier dilation and complete sampling - discussed risks of surgery, including bleeding, infection, and injury to adjacent structures - patient agreeable to proceed with hysteroscopy and D&C
--- NOTE | 2025-04-02 07:30 | WPDHPUPDATE1 ---
History and Physical Update Update Date/Time: 04/02/25 07:30 History and Physical has been reviewed, including an updated exam of the patient. There are NO changes in the patient's condition. Risks, benefits, and alternatives have been discussed and questions answered. Patient agrees to proceed with procedure.
[2025-04-02] MEDS: ACETAMINOPHEN 500 MG TABLET 1000 MG PO (07:37)
--- NOTE | 2025-04-02 08:04 | WPDANESEPPF ---
Anes - Initial Pre Proc Eval Procedure: Operation Date: 04/02/25 08:30 Proposed Procedures p Hysteroscopy Dilation and Curettage - Marcus Wells MD Date/Time: 04/02/25 08:04 Surgeon: Marcus Wells MD Pre Op Diagnosis: Abnormal Uterine Bleeding Patient Data Age: 55 Gender: F Height: 1.68 m Weight: 112 kg Last Vital Signs Temp 36.0 C L 04/02/25 07:00 Pulse 89 04/02/25 07:00 Resp 16 04/02/25 07:00 BP 155/103 H 04/02/25 07:00 Pulse Ox 98 04/02/25 07:00 O2 Del Method Room Air 04/02/25 07:00 Allergies Allergy/AdvReac Type Severity Reaction Status Date / Time sulfamethoxazole (From Allergy Hives Verified 04/02/25 07:31 Septra) trimethoprim (From Septra) Allergy Hives Verified 04/02/25 07:31 valacyclovir (From Valtrex) Allergy Migraine Verified 04/02/25 07:31 Home Medications ?Medication ?Instructions ?Recorded ?Confirmed ?Type cholecalciferol (vitamin D3) 125 125 mcg PO DAILY 08/23/23 03/22/25 History mcg (5,000 unit) tablet (Vitamin D3) evening primrose oil 500 mg capsule 500 mg PO TID 08/23/23 03/22/25 History magnesium glycinate 100 mg (as 200 mg PO DAILY 08/23/23 03/22/25 History glycinate) tablet cyclobenzaprine 10 mg tablet 10 mg PO Q12H PRN muscle spasm 02/19/25 03/22/25 History fluticasone propionate 50 1 spray intranasal DAILY 02/19/25 03/22/25 History mcg/actuation nasal spray,suspension ashwagandha root extract 300 mg 600 mg PO DAILY 03/22/25 03/22/25 History capsule Patient hx anesthesia problems: none Family hx anesthesia problems: none Results Review: All pre-operative results and documents have been reviewed as part of the pre-operative evaluation. [facility] Past Medical History Medical History Epigastric pain Social History Social History Smoking status: Former smoker Smokeless tobacco user: chewing tobacco Additional smoking assessment comments: experimented as a teen with cigarettes Alcohol intake: never Substance use: former Substance use type: marijuana Other substance usage details: In teens Living arrangements: with family Spiritual care concerns: No Anes - Eval Final PreProcedure Day of Procedure 04/02/25 08:04 Patient weight: morbidly obese Heart: regular rate and rhythm Lungs: clear to auscultation Airway: Mallampati scale class II Neurological: alert and oriented Last oral intake: >/= 8 hours ASA classification: III Emergent: no Anesthetic plan: proceed Anesthesia type and monitoring: general GIVS and standard monitoring Results Review: All pre-operative results and documents have been reviewed as part of the pre-operative evaluation. Informed Consent: The patient's anesthetic plan and its attendant risks and benefits were discussed with the patient/family/POA. Questions were solicited and answers provided to the satisfaction of the patient/family/POA.
[2025-04-02] MEDS: KETOROLAC 15 MG/ML VIAL (*BKC) IV PUSH (08:15)
--- NOTE | 2025-04-02 08:27 | S_PTH ---
PATIENT: Cat Rogers LOC: [facility] U#:[id number] AGE/SX: 55/F ROOM: RE04/02/[address]: Marcus Wells MD : 1970 BED: DIS: 04/02/2025 SPEC #: [id number] RECD: 04/02/25 11:00 STATUS: SARMAD REChapo #: [id number] ROLY: 04/02/25 08:[address]: Marcus Wells DEPT: [facility] Surgical RECD BY: Kenia Doe ENTERED: 04/02/25 11:00 SP TYPE: Surgical OTHR DR: Genaro Islas MD Tissues: A - Endocervical Curettings Procedures: Hematoxylin and Eosin Stain Gross and Microscopic Level 4
--- NOTE | 2025-04-02 08:31 | P.OP_ITS ---
Procedure Note - Detailed Date of Procedure 04/02/25 Pre-op Diagnosis Abnormal Uterine Bleeding Post-op Diagnosis Same Procedure Performed hysteroscopy D&C Surgeon Marcus Wells MD Anesthesia MAC Indications abnormal uterine bleeding s/p chemo and radiation for cervical cancer in 20s Findings extremely scarred and atrophic vagina; cervix adhered to back wall of vagina; small external os found with short canal appearing atrophic; not able to visualize endometrium or tubal ostia Description of Procedure The patient was then taken to the operating room with IVFs running. She was placed in the dorsal supine position where she received MAC without any difficulty.?? The patient was placed in the dorsal lithotomy position using justino stirrups. EUA revealed the above findings. She was then prepped and draped in a normal sterile fashion. A time-out procedure was performed and all members of the OR team agreed on the patient and plan. A bivalved speculum was then inserted into the patient's vagina.? The cervix was flush with the back wall of the vagina. The cervical canal was gentle dilated using blair dilators? At this point, the hysteroscope was then inserted into the uterine cavity. Saline was used as the distension medium. The above findings were noted. The hysteroscope was then removed. A Donovanian endocervical curette was used to perform D&C due to inability to fully access the endometrial cavit y.? The speculum was then removed. The patient tolerated the procedure well.? Sponge, lap, needle, and instrument counts were correct X2.? The patient was taken out of the dorsal lithotomy position and awakened from anesthesia and taken to the recovery room in stable condition. Estimated Blood Loss 0 Pathology Yes Complications No immediate complications Condition Stable Disposition Same day
[2025-04-02 08:33] VITALS: BP 132/91; PULSE 72; RESP 18; O2SAT 100
[2025-04-02] MEDS: LACTATED RINGERS 1,000 ML 30 ML IV CONT (08:33)
[2025-04-02 09:00] VITALS: BP 117/81; PULSE 60; RESP 20
[2025-04-02] MEDS: MAG HYDROX/AL HYDROX/SIMETH 30 ML UDC PO (09:28)
[2025-04-02 09:30] VITALS: BP 141/92; PULSE 55; RESP 16
[2025-04-02 09:46] VITALS: BP 130/83; PULSE 64; RESP 16
== END 2025-04-02 09:56 | disposition home or self-care (01) ==
PROVIDERS: PCP Emergency Medicine; Visit Provider Obstetrics & Gynecology
PROC: 0U5B8ZZ Destruction of Endometrium, Via Natural or Artificial Opening Endoscopic (ICD-10-PCS; CPT 58563; principal; 2025-04-02 08:30)
DX: N93.9 Abnormal uterine and vaginal bleeding, unspecified (principal); N85.8 Other specified noninflammatory disorders of uterus; Z85.41 Personal history of malignant neoplasm of cervix uteri; Z92.21 Personal history of antineoplastic chemotherapy; Z92.3 Personal history of irradiation; E66.01 Morbid (severe) obesity due to excess calories; Z68.39 Body mass index [BMI] 39.0-39.9, adult
CPT/HCPCS: 58558; 88305; A9270; J1885; J2003; J2004; J2250; J2704; J3010; J7120